=== PATIENT | female | born 1950 | race Caucasian/White ===

== ENCOUNTER 2021-03-12 10:00 | Inpatient (IN) ==
[2021-03-12] MEDS ORDERED: SODIUM CHLORIDE 0.9% 1000ML 1,000 ML IV STA (10:16)
[2021-03-12] MEDS ORDERED: ASPIRIN CHEW 324 MG PO STA (10:16)
[2021-03-12 10:46] LABS: Basophils # (auto) 0.02 K/uL (0-0.2); Basophils % (auto) 0.2 %; Eosinophils # (auto) 0.05 K/uL (0-0.5); Eosinophils % (auto) 0.6 %; Hematocrit (blood only) 41.2 % (37-47); Hemoglobin 14.1 g/dL (12.0-16.0); Immature Granulocytes # (auto) 0.01 K/uL (0.00-0.02); Immature Granulocytes % (auto) 0.1 %; Lymphocytes # (auto) 1.93 K/uL (1.2-3.4); Lymphocytes % (auto) 22.2 %; Mean Corpuscular Hemoglobin 32.2 pg (25-34); Mean Corpuscular Hgb Conc 34.2 g/dL (32-36); Mean Corpuscular Volume 94.1 fL (80-100); Mean Platelet Volume 9.9 fL (7.4-10.4); Monocytes # (auto) 0.57 K/uL (0.11-0.59); Monocytes % (auto) 6.6 %; Neutrophils # (auto) 6.12 K/uL (1.4-6.5); Neutrophils % (auto) 70.3 %; Platelet Count 342 K/uL (130-400); RDW Coefficient of Variation 13.1 % (11.5-14.5); RDW Standard Deviation 45.5 fL (36.4-46.3); Red Blood Count 4.38 M/uL (4.2-5.4)
[2021-03-12 11:06] LABS: Albumin Level 3.4 gm/dl (3.4-5.0); Bilirubin Direct 0.1 mg/dl (0-0.2); Calcium 8.5 mg/dl (8.5-10.1); Creatinine Clr Calc Pharmacy 76.2 ml/min; Est GFR (African American) 101.7 ml/min; Est GFR (Non-African American) 87.8 ml/min; Potassium 3.3 mmol/L (3.5-5.1)
[2021-03-12 11:21] LABS: Bilirubin,Total 0.5 mg/dl (0.2-1); Total Protein 7.6 gm/dl (6.4-8.2); Troponin I 0.295 ng/ml (0-0.045)
--- NOTE | 2021-03-12 11:21 | Emergency Department Note ---
History of Present Illness General Chief Complaint: Shortness of Breath/Dyspnea Stated Complaint: SHORTNESS OF BREATH,NAUSEA,HEARTBURN ALL DAY YESTE Time Seen by Provider: 03/12/21 10:14 History of Present Illness Provider Complaint: shortness of breath Onset (ago): hour(s) (2) Severity: moderate Consistency/Duration: + improved Relieved By: + rest Exacerbated By: + exertion and + movement Context: + occurred during exertion; no recent illness, no choking/aspiration, no medication noncompliance, no allergen exposure, no recent travel, no smoke/fume exposure and no elevated blood glucose Associated symptoms: no chest pain, no pain with inspiration, no fever, no cough, no wheezing, no sputum production, no orthopnea, no lower extremity pain, no polyuria, no palpitations, no hemoptysis, no diaphoresis, no nausea/vomiting, no syncope, no abdominal pain, no sense of impending doom, no dizziness and no lightheadedness Home Medications Medication Instructions Recorded Confirmed Type multivit with min-folic acid 1 tab PO QAM 03/12/21 03/12/21 History [Multivitamin Gummies] Allergies Allergy/AdvReac Type Severity Reaction Status Date / Time Vsipycp-Wpb-Egi Reductase AdvReac Severe Feels like Unverified 03/12/21 14:52 Inhibitor cuts inside of mouth Past Med/Surg History Medical History (Updated 03/12/21 @ 17:32 by Enrique Rosen) Asymptomatic microscopic hematuria Benign tumor of spinal cord History of DVT (deep vein thrombosis) Surgical History (Updated 03/12/21 @ 15:15 by Nell Cardenas PA-C) History of breast biopsy History of hernia repair History of hysterectomy History of tonsillectomy History of total right knee replacement (TKR) Family History Denies family history of Pulmonary embolism Social History (Updated 03/12/21 @ 15:16 by Nell Cardenas PA-C) Smoking Status: Never smoker Hx Alcohol Use: No Hx Substance Use: No Preferred Language: Macanese Communication Ability: Effective marital status: Current Living Situation: Spouse Feels Safe at Home: Yes Review of Systems A total of 10 systems reviewed and were otherwise negative Physical Exam Vital Signs: Vital Signs - 24 hr 03/12/21 10:04 03/12/21 10:37 03/12/21 10:38 Temperature 36.2 C L Temperature Source Temporal Artery Sc an Pulse Rate 101 H 94 H Pulse Rate from Sp O2 Sensor 95 H Respiratory Rate 20 26 H Respiratory Effort / Characteristics Respiratory Depth Respiratory Patter n Blood Pressure 141/95 H 155/98 H Blood Pressure Sho n 110 117 Pulse Oximetry 94 96 92 Oxygen Delivery Me thod Room Air Room Air Oxygen Flow Rate Sepsis Recent Feve r Within 48 Hours No Sepsis New/Unexpla ined Change in Men jony Status N/A Sepsis Action Take n by Nursing No Action Required 03/12/21 10:41 03/12/21 10:50 03/12/21 11:00 Temperature Temperature Source Pulse Rate 94 H 95 H 88 Pulse Rate from Sp O2 Sensor 94 H 95 H 88 Respiratory Rate 19 26 H 19 Respiratory Effort / Characteristics Non-Labored Sponta neous Respiratory Depth Normal Respiratory Patter n Regular Blood Pressure Blood Pressure Sho n Pulse Oximetry 92 86 L 97 Oxygen Delivery Me thod Room Air Oxygen Flow Rate Sepsis Recent Feve r Within 48 Hours Sepsis New/Unexpla ined Change in Men jony Status Sepsis Action Take n by Nursing 03/12/21 11:10 03/12/21 11:20 03/12/21 11:35 Temperature Temperature Source Pulse Rate 94 H 87 89 Pulse Rate from Sp O2 Sensor 95 H 88 Respiratory Rate 25 H 25 H 25 H Respiratory Effort / Characteristics Respiratory Depth Respiratory Patter n Blood Pressure Blood Pressure Sho n Pulse Oximetry 95 96 Oxygen Delivery Me thod Oxygen Flow Rate Sepsis Recent Feve r Within 48 Hours Sepsis New/Unexpla ined Change in Men jony Status Sepsis Action Take n by Nursing 03/12/21 11:40 03/12/21 11:50 03/12/21 12:00 Temperature Temperature Source Pulse Rate 92 H 91 H 93 H Pulse Rate from Sp O2 Sensor 91 H 94 H Respiratory Rate 24 21 19 Respiratory Effort / Characteristics Respiratory Depth Respiratory Patter n Blood Pressure Blood Pressure Sho n Pulse Oximetry 98 99 Oxygen Delivery Me thod Oxygen Flow Rate Sepsis Recent Feve r Within 48 Hours Sepsis New/Unexpla ined Change in Men jony Status Sepsis Action Take n by Nursing 03/12/21 12:10 03/12/21 12:20 03/12/21 12:30 Temperature Temperature Source Pulse Rate 93 H 91 H 87 Pulse Rate from Sp O2 Sensor 93 H 92 H 88 Respiratory Rate 21 23 20 Respiratory Effort / Characteristics Respiratory Depth Respiratory Patter n Blood Pressure Blood Pressure Sho n Pulse Oximetry 97 98 90 Oxygen Delivery Me thod Oxygen Flow Rate Sepsis Recent Feve r Within 48 Hours Sepsis New/Unexpla ined Change in Men jony Status Sepsis Action Take n by Nursing 03/12/21 12:40 03/12/21 13:16 03/12/21 13:20 Temperature Temperature Source Pulse Rate 88 92 H 87 Pulse Rate from Sp O2 Sensor 92 H 91 H 87 Respiratory Rate 23 21 22 Respiratory Effort / Characteristics Respiratory Depth Respiratory Patter n Blood Pressure Blood Pressure Sho n Pulse Oximetry 100 96 98 Oxygen Delivery Me thod Oxygen Flow Rate Sepsis Recent Feve r Within 48 Hours Sepsis New/Unexpla ined Change in Men jony Status Sepsis Action Take n by Nursing 03/12/21 13:30 03/12/21 13:40 03/12/21 13:50 Temperature Temperature Source Pulse Rate 88 88 88 Pulse Rate from Sp O2 Sensor 89 88 88 Respiratory Rate 22 20 20 Respiratory Effort / Characteristics Respiratory Depth Respiratory Patter n Blood Pressure Blood Pressure Sho n Pulse Oximetry 99 98 99 Oxygen Delivery Me thod Oxygen Flow Rate Sepsis Recent Feve r Within 48 Hours Sepsis New/Unexpla ined Change in Men jony Status Sepsis Action Take n by Nursing 03/12/21 14:00 03/12/21 14:10 03/12/21 14:20 Temperature Temperature Source Pulse Rate 90 90 93 H Pulse Rate from Sp O2 Sensor 90 91 H 94 H Respiratory Rate 22 20 20 Respiratory Effort / Characteristics Respiratory Depth Respiratory Patter n Blood Pressure Blood Pressure Sho n Pulse Oximetry 98 99 99 Oxygen Delivery Me thod Oxygen Flow Rate Sepsis Recent Feve r Within 48 Hours Sepsis New/Unexpla ined Change in Men jony Status Sepsis Action Take n by Nursing 03/12/21 14:30 03/12/21 14:40 03/12/21 14:50 Temperature Temperature Source Pulse Rate 91 H 91 H 91 H Pulse Rate from Sp O2 Sensor 91 H 92 H 91 H Respiratory Rate 21 21 20 Respiratory Effort / Characteristics Respiratory Depth Respiratory Patter n Blood Pressure Blood Pressure Sho n Pulse Oximetry 99 100 100 Oxygen Delivery Me thod Oxygen Flow Rate Sepsis Recent Feve r Within 48 Hours Sepsis New/Unexpla ined Change in Men jony Status Sepsis Action Take n by Nursing 03/12/21 15:00 03/12/21 15:10 06/08/21 15:20 Temperature Temperature Source Pulse Rate 91 H 93 H 93 H Pulse Rate from Sp O2 Sensor 90 93 H 93 H Respiratory Rate 22 20 19 Respiratory Effort / Characteristics Respiratory Depth Respiratory Patter n Blood Pressure Blood Pressure Sho n Pulse Oximetry 98 99 98 Oxygen Delivery Me thod Oxygen Flow Rate Sepsis Recent Feve r Within 48 Hours Sepsis New/Unexpla ined Change in Men jony Status Sepsis Action Take n by Nursing 03/12/21 15:30 03/12/21 15:40 03/12/21 17:06 Temperature Temperature Source Pulse Rate 92 H 89 Pulse Rate from Sp O2 Sensor 92 H 94 H Respiratory Rate 20 22 Respiratory Effort / Characteristics Respiratory Depth Respiratory Patter n Blood Pressure 165/109 H Blood Pressure Sho n Pulse Oximetry 99 99 Oxygen Delivery Me thod Nasal Cannula Oxygen Flow Rate 3 Sepsis Recent Feve r Within 48 Hours Sepsis New/Unexpla ined Change in Men jony Status Sepsis Action Take n by Nursing Physical Exam: Physical Exam GENERAL: He is oriented to person, place, and time. He appears well-developed and well-nourished. He does not appear distressed. HENT: Exam performed. - Head: Normocephalic and atraumatic. - Right Ear: External ear normal. No mastoid tenderness. - Left Ear: External ear normal. No mastoid tenderness. - Mouth/Throat: The oropharynx is clear and moist. No trismus in the jaw. No dental abscesses or uvula swelling. No oropharyngeal exudate or tonsillar abscesses. EYES: Conjunctivae and EOM are normal. Pupils are equal, round, and reactive to light. Right eye exhibits no discharge. Left eye exhibits no discharge. No scleral icterus. NECK: Normal range of motion. Neck supple. No JVD present. No spinous process tenderness present. No carotid bruit present. No rigidity. No tracheal deviation and normal range of motion present. No Brudzinski's sign and no Kernig's sign noted. CV: Tachycardic rate, regular rhythm, normal heart sounds and intact distal pulses. There is no peripheral edema. Palpable radial pulses bue. PULM/CHEST: Effort normal and breath sounds normal. No respiratory distress. No stridor. He has no wheezes. He has no rales. - Chest Wall: He exhibits no tenderness. ABD: The abdomen is soft. Bowel sounds are normal. He has no distension. No mass is present. There is no tenderness. There is no rebound, no guarding, no Villafuerte's sign and no tenderness at McBurney's point. Rovsig negative. MUSC/SKEL: Normal range of motion. There is no peripheral edema, tenderness or deformity. LYMPH: No cervical adenopathy. NEURO: He is alert and oriented to person, place, and time. He has normal strength. No cranial nerve deficit or sensory deficit. Coordination and gait nor mal. GCS eye subscore is 4. GCS verbal subscore is 5. GCS motor subscore is 6. Cerebellar tests wnl. SKIN: Skin is warm and dry. He is not diaphoretic. PSYCH: He has a normal mood and affect. Behavior is normal. Judgment and thought content normal. Course Course 1014: The patient was evaluated in room C7. A complete history and physical exam was performed Cardiac monitoring: An order was placed for continuous cardiac monitoring. The monitor shows a rate of 100 with sinus rhythm 1130: Patient became hypoxic on room air. Patient's oxygen saturations improved with 3 L nasal cannula. Troponin is elevated. Given this and the T wave inversions patient be started on heparin for NSTEMI. 1150: D-dimer elevated. Will obtain CT of the chest. 1415: Vital signs stable on supplemental oxygen via nasal cannula. CTA of the chest showed a extensive bilateral pulmonary emboli including a saddle embolus in the main pulmonary arteries and right-sided heart strain. This explains patient's elevated troponin. I did discuss the case with the ICU doctor Dr. Russo. Both he and I discussed with the patient about possible TPA administration. Patient is normotensive at this time and in no respiratory distress on nasal cannula. Given these findings, the patient and the at bedside stated they prefer not to get TPA as the patient is currently hemodynamically stable and not hypotensive. They stated that they did not want to risk spontaneous hemorrhage with TPA. Both Dr. Daniel and I agree with the patient's decision and feel it is appropriate especially since she is so normotensive and in no respiratory distress. We will continue anticoagulation with heparin and the patient's heparin drip was increased to more appropriate rate. [facility] stated to admit to Dr. Meng. Administered Medications Heparin Sodium/Dextrose (Heparin Sodium/Dextrose) 25,000 units in 500 mls @ 23 mls/hr IV .[id number] [facility]; Protocol Stop: 04/11/21 11:40 Last Titration: 03/12/21 14:29 Dose: 1,150 units/hr, 23 mls/hr Documented by: [id number] Cosigned by: [id number] Admin: 03/12/21 11:35 Dose: 750 units/hr, 15 mls/hr Documented by: [id number] Cosigned by: [id number] Discontinued Medications Aspirin (Aspirin Chew 324 Mg) 324 mg PO NOW STA Stop: 03/12/21 10:17 Last Admin: 03/12/21 11:14 Dose: 324 mg Documented by: [id number] Heparin Sodium (Porcine) (Heparin Sod (Porcine) 1000 Unit/Ml) 4,000 units IV NOW STA Stop: 03/12/21 11:29 Last Admin: 03/12/21 11:38 Dose: 4,000 units Documented by: [id number] Cosigned by: [id number] Heparin Sodium/Dextrose (Heparin Iv Adult Wt-Based Standard *No* Bolus Protocol) 1 ea IV NOW STA Stop: 03/12/21 14:22 Last Admin: 03/12/21 14:31 Dose: 1 ea Documented by: [id number] Sodium Chloride (Nss 1000ml) 1,000 mls @ 999 mls/hr IV .[id number] STA Stop: 03/12/21 11:16 Last Infusion: 03/12/21 12:39 Dose: 0 mls/hr Documented by: [id number] Admin: 03/12/21 11:14 Dose: 999 mls/hr Documented by: [id number] Ioversol (Optiray 350 500ml) 117 ml IV ONCE ONE Stop: 03/12/21 13:06 Last Admin: 03/12/21 13:05 Dose: 117 ml Documented by: [id number] Potassium Chloride (Potassium Chloride Crtab 20 Meq Tabcr) 60 meq PO NOW STA Stop: 03/12/21 14:58 Last Admin: 03/12/21 16:40 Dose: 60 meq Documented by: [id number] Medical Decision Making Laboratory Data Result diagrams: 03/12/21 10:37 03/12/21 10:37 Lab Results 03/12/21 03/12/21 03/12/21 Range/Units 10:37 10:37 11:09 WBC 8.70 (4.8-10.8) K/uL RBC 4.38 (4.2-5.4) M/uL Hgb 14.1 (12.0-16.0) g/dL Hct 41.2 (37-47) % MCV 94.1 (80-100) fL MCH 32.2 (25-34) pg MCHC 34.2 (32-36) g/dL RDW Std Deviation 45.5 (36.4-46.3) fL RDW Coeff of Avery 13.1 (11.5-14.5) % Plt Count 342 (130-400) K/uL MPV 9.9 (7.4-10.4) fL Immature Gran % (Auto) 0.1 % Neut % (Auto) 70.3 % Lymph % (Auto) 22.2 % [place] % (Auto) 6.6 % Eos % (Auto) 0.6 % Baso % (Auto) 0.2 % Neut # (Auto) 6.12 (1.4-6.5) K/uL Lymph # (Auto) 1.93 (1.2-3.4) K/uL [place] # (Auto) 0.57 (0.11-0.59) K/uL Eos # (Auto) 0.05 (0-0.5) K/uL Baso # (Auto) 0.02 (0-0.2) K/uL Immature Gran # (Auto) 0.01 (0.00-0.02) K/uL PT 10.5 (9.0-12.0) Seconds INR 1.0 (0.9-1.1) APTT 22.5 (21.0-31.0) Seconds PTT Ratio 0.9 D-Dimer 5300 H* (0-500) ug/L FEU Sodium 139 (136-145) mmol/L Potassium 3.3 L (3.5-5.1) mmol/L Chloride 105 (98-107) mmol/L Carbon Dioxide 27 (21-32) mmol/L Anion Gap 7.0 (3-11) BUN 12 (7-18) mg/dl Creatinine 0.70 (0.6-1.2) mg/dl Est Cr Clr Drug Dosing 76.2 ml/min Est GFR ( Amer) 101.7 ml/min Est GFR (Non-Af Amer) 87.8 ml/min BUN/Creatinine Ratio 17.0 (10-20) Glucose 142 H (70-99) mg/dl Calcium 8.5 (8.5-10.1) mg/dl Total Bilirubin 0.5 (0.2-1) mg/dl Direct Bilirubin 0.1 (0-0.2) mg/dl AST 15 (15-37) U/L ALT 18 (12-78) U/L Alkaline Phosphatase 72 (45-117) U/L Troponin I 0.295 H* (0-0.045) ng/ml Total Protein 7.6 (6.4-8.2) gm/dl Albumin 3.4 (3.4-5.0) gm/dl Lipase 90 (73-393) U/L COVID-19 Eval Order SARS-CoV-2 (PCR) (Negative) Influ A Molecular Assay (Negative) Influ B Molecular Assay (Negative) SARS-CoV-2, RNA, NAAT 03/12/21 03/12/21 03/12/21 Range/Units 11:24 11:24 11:24 WBC (4.8-10.8) K/uL RBC (4.2-5.4) M/uL Hgb (12.0-16.0) g/dL Hct (37-47) % MCV (80-100) fL MCH (25-34) pg MCHC (32-36) g/dL RDW Std Deviation (36.4-46.3) fL RDW Coeff of Avery (11.5-14.5) % Plt Count (130-400) K/uL MPV (7.4-10.4) fL Immature Gran % (Auto) % Neut % (Auto) % Lymph % (Auto) % [place] % (Auto) % Eos % (Auto) % Baso % (Auto) % Neut # (Auto) (1.4-6.5) K/uL Lymph # (Auto) (1.2-3.4) K/uL [place] # (Auto) (0.11-0.59) K/uL Eos # (Auto) (0-0.5) K/uL Baso # (Auto) (0-0.2) K/uL Immature Gran # (Auto) (0.00-0.02) K/uL PT (9.0-12.0) Seconds INR (0.9-1.1) APTT (21.0-31.0) Seconds PTT Ratio D-Dimer (0-500) ug/L FEU Sodium (136-145) mmol/L Potassium (3.5-5.1) mmol/L Chloride (98-107) mmol/L Carbon Dioxide (21-32) mmol/L Anion Gap (3-11) BUN (7-18) mg/dl Creatinine (0.6-1.2) mg/dl Est Cr Clr Drug Dosing ml/min Est GFR ( Amer) ml/min Est GFR (Non-Af Amer) ml/min BUN/Creatinine Ratio (10-20) Glucose (70-99) mg/dl Calcium (8.5-10.1) mg/dl Total Bilirubin (0.2-1) mg/dl Direct Bilirubin (0-0.2) mg/dl AST (15-37) U/L ALT (12-78) U/L Alkaline Phosphatase (45-117) U/L Troponin I (0-0.045) ng/ml Total Protein (6.4-8.2) gm/dl Albumin (3.4-5.0) gm/dl Lipase (73-393) U/L COVID-19 Eval [facility] SARS-CoV-2 (PCR) (Negative) Influ A Molecular Assay Negative (Negative) Influ B Molecular Assay Negative (Negative) SARS-CoV-2, RNA, NAAT Cancelled 03/12/21 03/12/21 Range/Units 11:24 15:42 WBC (4.8-10.8) K/uL RBC (4.2-5.4) M/uL Hgb (12.0-16.0) g/dL Hct (37-47) % MCV (80-100) fL MCH (25-34) pg MCHC (32-36) g/dL RDW Std Deviation (36.4-46.3) fL RDW Coeff of Avery (11.5-14.5) % Plt Count (130-400) K/uL MPV (7.4-10.4) fL Immature Gran % (Auto) % Neut % (Auto) % Lymph % (Auto) % [place] % (Auto) % Eos % (Auto) % Baso % (Auto) % Neut # (Auto) (1.4-6.5) K/uL Lymph # (Auto) (1.2-3.4) K/uL [place] # (Auto) (0.11-0.59) K/uL Eos # (Auto) (0-0.5) K/uL Baso # (Auto) (0-0.2) K/uL Immature Gran # (Auto) (0.00-0.02) K/uL PT (9.0-12.0) Seconds INR (0.9-1.1) APTT (21.0-31.0) Seconds PTT Ratio D-Dimer (0-500) ug/L FEU Sodium (136-145) mmol/L Potassium (3.5-5.1) mmol/L Chloride (98-107) mmol/L Carbon Dioxide (21-32) mmol/L Anion Gap (3-11) BUN (7-18) mg/dl Creatinine (0.6-1.2) mg/dl Est Cr Clr Drug Dosing ml/min Est GFR ( Amer) ml/min Est GFR (Non-Af Amer) ml/min BUN/Creatinine Ratio (10-20) Glucose (70-99) mg/dl Calcium (8.5-10.1) mg/dl Total Bilirubin (0.2-1) mg/dl Direct Bilirubin (0-0.2) mg/dl AST (15-37) U/L ALT (12-78) U/L Alkaline Phosphatase (45-117) U/L Troponin I 0.251 H* (0-0.045) ng/ml Total Protein (6.4-8.2) gm/dl Albumin (3.4-5.0) gm/dl Lipase (73-393) U/L COVID-19 Eval Order SARS-CoV-2 (PCR) NEGATIVE (Negative) Influ A Molecular Assay (Negative) Influ B Molecular Assay (Negative) SARS-CoV-2, RNA, NAAT Imaging Data Radiologist's Impression: Chest X-Ray 03/12/21 10:16 XR chest 2V PA/lateral CLINICAL HISTORY: Atypical chest pain COMPARISON STUDY: No previous studies for comparison. FINDINGS: The heart is the upper limits of normal in size. There is aortic tortuosity/ectasia. There is no failure. There is no focal pulmonary consolidation. There are no pleural effusions. Linear opacities visualized towards the right lung base likely are present right middle lobe subsegmental atelectasis/scarring. IMPRESSION: No active disease in the chest. ACT 112: Negative or not required by law. Electronically signed by: Juwan Rodas M.D. 03/12/2021 11:39 AM Chest CTA 03/12/21 11:51 CHEST CTA for PULMONARY ARTERIES CT DOSE: 310.95 mGy.cm HISTORY: Atypical chest pain. TECHNIQUE: Multiaxial CT images of the chest were performed following the intravenous administration of contrast to evaluate the pulmonary arteries. Maximal intensity projection images were also obtained. A dose lowering technique was utilized adhering to the principles of ALARA. COMPARISON STUDY: None. FINDINGS: Partially visualized 1.2 cm hypodensity within the left hepatic lobe anteriorly. This may represent an area of focal fat. The visualized spleen is unremarkable. There is a trace left pleural effusion. Normal caliber thoracic aorta with no evidence for dissection. There is mild flattening of the interventricular septum suggestive of mild right-sided heart strain. Extensive bilateral pulmonary emboli including a small saddle embolus at the bifurcation of the main pulmonary arteries. Multiple additional scattered pulmonary seen within the lobar and segmental branches of the majority of the bilateral pulmonary arteries. Normal esophagus. No mediastinal hilar lymphadenopathy. Levoscoliosis of the thoracic spine. No suspicious lytic or blastic osseous lesions. No pneumothorax. The central airways are patent. Small groundglass density the basal left lower lobe. This may represent atelectasis or a developing pulmonary infarct. A few additional linear densities within the right lung base favor subsegmental atelectasis or scarring. A 5 mm nodule within the left lower lobe on image 43. IMPRESSION: 1. Extensive bilateral pulmonary emboli including a saddle embolus at the main pulmonary arteries and mild right-sided heart strain. 2. Probable developing small pulmonary infarct within the left lower lobe. 3. Trace left pleural effusion. 4. A 5 mm indeterminate pulmonary nodule within the left lower lobe. Please refer to below summary of Fleischner criteria recommendations for follow- up of incidental CT nodules (Elan Panda, Guidelines for management of small pulmonary nodules detected on CT scans: A statement from the Fleischner Society, Radiology 237: [phone].) SOLID NODULES Solitary nodule size: <6 mm * Low risk patients: no follow-up needed * high risk patients: optional CT at 12 months Solitary nodule size: 6-8 mm * Low risk patients: follow-up at 6-12 months, then consider further follow-up at 18-24 months * high risk patients: initial follow-up CT at 6-12 months and then at 18-24 months if no change Solitary nodule size: >8 mm * either low or high risk patients - consider follow-up CT at 3 months, and/or CT-PET, and/or biopsy Multiple nodules size: <6 mm * Low risk patients: no routine follow-up * high risk patients: optional CT at 12 months Multiple nodules size: 6-8 mm * Low risk patients: follow-up at 3-6 months, then consider further follow-up at 18-24 months * high risk patients: follow-up at 3-6 months, then at 18-24 months if no change Multiple nodules size: >8 mm * Low risk patients: follow-up at 3-6 months, then consider further follow-up at 18-24 months * high risk patients: follow-up at 3-6 months, then at 18-24 months if no change Note: newly detected indeterminate nodule in persons 35 years of age or older. * Low risk patients: minimal or absent history of smoking and/or other known risk factors * high risk patients: history of smoking or of other known risk factors (e.g. first degree relative with lung cancer, or exposure to asbestos, radon, uranium) * if a nodule up to 8 mm is partly solid or is ground glass further follow-up is required after 24 months to exclude possible slow growing adenocarcinoma ([place]) SUBSOLID NODULES Solitary pure ground-glass nodule * nodule size <6 mm - no CT follow-up required * nodule size >=6 mm - follow-up CT at 6-12 months, then every 2 years until 5 years Solitary part-solid nodule * nodule size <6 mm - no CT follow-up required * nodule size >=6 mm - follow-up CT at 3-6 months. If unchanged, and solid component remains <6 mm, then annual follow-up for 5 years Multiple subsolid nodules * nodule size <6 mm - follow-up CT at 3-6 months, consider further follow-up at 2 and 4 years if stable * nodule size >=6 mm - follow-up CT at 3-6 months, subsequent management based on the most suspicious nodule(s) ACT 112: Negative or not required by law. Electronically signed by: Asael Vu M.D. 03/12/2021 1:25 PM Venous Doppler Study 03/12/21 14:53 BILATERAL LOWER EXTREMITY VENOUS DOPPLER CLINICAL HISTORY: RLE swelling, PE COMPARISON STUDY: No previous studies for comparison. TECHNIQUE: Sonography of the deep venous system of the bilateral lower extremities was performed. Compression and augmentation were evaluated. FINDINGS: There is no deep venous thrombus within the right lower extremity. Note is made of deep venous thrombus within the left superficial femoral vein. IMPRESSION: Deep venous thrombus within the left superficial femoral vein. ACT 112: Negative or not required by law. Electronically signed by: Sahil Ortiz M.D. 03/12/2021 4:33 PM ECG Data Interpretation: Sinus rhythm with rate of 101. IA QRS intervals within normal limits. QTC 503. No ST elevation or ST depression. T wave inversion in leads II, III, aVF, V3 through V6. MDM Narrative 1014: The patient was evaluated in room C7. A complete history and physical exam was performed Cardiac monitoring: An order was placed for continuous cardiac monitoring. The monitor shows a rate of 100 with sinus rhythm 1130: Patient became hypoxic on room air. Patient's oxygen saturations improved with 3 L nasal cannula. Troponin is elevated. Given this and the T wave invers ions patient be started on heparin for NSTEMI. 1150: D-dimer elevated. Will obtain CT of the chest. 1415: Vital signs stable on supplemental oxygen via nasal cannula. CTA of the chest showed a extensive bilateral pulmonary emboli including a saddle embolus in the main pulmonary arteries and right-sided heart strain. This explains patient's elevated troponin. I did discuss the case with the ICU doctor Dr. Russo. Both he and I discussed with the patient about possible TPA administration. Patient is normotensive at this time and in no respiratory distress on nasal cannula. Given these findings, the patient and the at bedside stated they prefer not to get TPA as the patient is currently hemodynamically stable and not hypotensive. They stated that they did not want to risk spontaneous hemorrhage with TPA. Both Dr. Daniel and I agree with the patient's decision and feel it is appropriate especially since she is so normotensive and in no respiratory distress. [facility] stated to admit to Dr. Meng. Impression & Plan Saddle pulmonary embolus, Hypoxia, Elevated troponin Critical Care Time Critical Care Time: Yes Total Critical Care Time: 120 I have personally spent greater than 120 minutes of critical care time in the direct management of this patient. This includes bedside care, interpretation of diagnostic studies, and testing, discussion with consultants, patient, and family members, and other required patient management activities. This 120 minutes is in excess of all separately billable procedures. Discharge Plan Visit Data Chief Complaint: Shortness of Breath/Dyspnea Stated Complaint: SHORTNESS OF BREATH,NAUSEA,HEARTBURN ALL DAY YESTE ED Provider: Enrique Rosen Discharge Problem: Saddle pulmonary embolus, Hypoxia, Elevated troponin Patient Disposition: Admitted As Inpatient Discharge Instructions Interventions: ED Discharge Assessment Last Done: 03/12/21 17:06 Forms Stand Alone Forms: [facility], [facility] Emergency Department, Important Visit Information Prescriptions Prescriptions: No Action Multivitamin Gummies 200 mcg Tablet,Chewable 1 tab PO QAM RF: 0 Referrals Referrals: Canelo Leslie MD [Primary Care Provider] - Discharge Problem: Saddle pulmonary embolus Qualifiers: Chronicity: acute Acute cor pulmonale presence: with acute cor pulmonale Qualified Code(s): I26.02 - Saddle embolus of pulmonary artery with acute cor pulmonale
[2021-03-12] MEDS ORDERED: Heparin IV Adult Wt-Based Low-Dose WITH Bolus Protocol STA (11:26)
[2021-03-12] MEDS ORDERED: HEPARIN SOD (PORCINE) 1000 UNIT/ML IV STA (11:28)
[2021-03-12] MEDS: HEPARIN SODIUM/DEXTROSE 25,000 UNITS/500 ML BAG IV SCH (11:35)
[2021-03-12 11:37] LABS: Partial Thromboplastin Ratio 0.9; Partial Thromboplastin Time 22.5 Seconds (21.0-31.0); Prothrombin Time 10.5 Seconds (9.0-12.0)
--- NOTE | 2021-03-12 11:40 | XRay Report ---
XR chest 2V PA/lateral CLINICAL HISTORY: Atypical chest pain COMPARISON STUDY: No previous studies for comparison. FINDINGS: The heart is the upper limits of normal in size. There is aortic tortuosity/ectasia. There is no failure. There is no focal pulmonary consolidation. There are no pleural effusions. Linear opac ities visualized towards the right lung base likely are present right middle lobe subsegmental atelec tasis/scarring. IMPRESSION: No active disease in the chest. ACT 112: Negative or not required by law. Electronically signed by: Juwan Rodas M.D. 03/12/2021 11:39 AM
[2021-03-12] MEDS ORDERED: HEPARIN SOD (PORCINE) 1000 UNIT/ML IV ONE (11:41)
[2021-03-12 11:50] LABS: D Dimer 5300 ug/L FEU (0-500)
[2021-03-12 12:06] LABS: Influenza A virus by PCR Negative (Negative); Influenza B virus by PCR Negative (Negative)
[2021-03-12] MEDS ORDERED: OPTIRAY 350 500ml IV ONE (13:05)
--- NOTE | 2021-03-12 13:26 | CT Scan Report ---
CHEST CTA for PULMONARY ARTERIES CT DOSE: 310.95 mGy.cm HISTORY: Atypical chest pain. TECHNIQUE: Multiaxial CT images of the chest were performed following the intravenous administration of contrast to evaluate the pulmonary arteries. Maximal intensity projection images were also obtaine d. A dose lowering technique was utilized adhering to the principles of ALARA. COMPARISON STUDY: None. FINDINGS: Partially visualized 1.2 cm hypodensity within the left hepatic lobe anteriorly. This may r epresent an area of focal fat. The visualized spleen is unremarkable. There is a trace left pleural e ffusion. Normal caliber thoracic aorta with no evidence for dissection. There is mild flattening of t he interventricular septum suggestive of mild right-sided heart strain. Extensive bilateral pulmonary emboli including a small saddle embolus at the bifurcation of the main pulmonary arteries. Multiple additional scattered pulmonary seen within the lobar and segmental branches of the majority of the bi lateral pulmonary arteries. Normal esophagus. No mediastinal hilar lymphadenopathy. Levoscoliosis of the thoracic spine. No suspicious lytic or blastic osseous lesions. No pneumothorax. The central airw ays are patent. Small groundglass density the basal left lower lobe. This may represent atelectasis o r a developing pulmonary infarct. A few additional linear densities within the right lung base favor subsegmental atelectasis or scarring. A 5 mm nodule within the left lower lobe on image 43. IMPRESSION: 1. Extensive bilateral pulmonary emboli including a saddle embolus at the main pulmonary arteries and mild right-sided heart strain. 2. Probable developing small pulmonary infarct within the left lower lobe. 3. Trace left pleural effusion. 4. A 5 mm indeterminate pulmonary nodule within the left lower lobe. Please refer to below summary of Fleischner criteria recommendations for follow-up of incidental CT n odules (Elan Panda, Guidelines for management of small pulmonary nodules detected on CT scans: A sta tement from the Fleischner Society, Radiology 237: [phone].) SOLID NODULES Solitary nodule size: <6 mm * Low risk patients: no follow-up needed * high risk patients: optional CT at 12 months Solitary nodule size: 6-8 mm * Low risk patients: follow-up at 6-12 months, then consider further follow-up at 18-24 months * high risk patients: initial follow-up CT at 6-12 months and then at 18-24 months if no change Solitary nodule size: >8 mm * either low or high risk patients - consider follow-up CT at 3 months, and/or CT-PET, and/or biopsy Multiple nodules size: <6 mm * Low risk patients: no routine follow-up * high risk patients: optional CT at 12 months Multiple nodules size: 6-8 mm * Low risk patients: follow-up at 3-6 months, then consider further follow-up at 18-24 months * high risk patients: follow-up at 3-6 months, then at 18-24 months if no change Multiple nodules size: >8 mm * Low risk patients: follow-up at 3-6 months, then consider further follow-up at 18-24 months * high risk patients: follow-up at 3-6 months, then at 18-24 months if no change Note: newly detected indeterminate nodule in persons 35 years of age or older. * Low risk patients: minimal or absent history of smoking and/or other known risk factors * high risk patients: history of smoking or of other known risk factors (e.g. first degree relative with lung cancer, or exposure to asbestos, radon, uranium) * if a nodule up to 8 mm is partly solid or is ground glass further follow-up is required after 24 m onths to exclude possible slow growing adenocarcinoma (KEENAN) SUBSOLID NODULES Solitary pure ground-glass nodule * nodule size <6 mm - no CT follow-up required * nodule size >=6 mm - follow-up CT at 6-12 months, then every 2 years until 5 years Solitary part-solid nodule * nodule size <6 mm - no CT follow-up required * nodule size >=6 mm - follow-up CT at 3-6 months. If unchanged, and solid component remains <6 mm, then annual follow-up for 5 years Multiple subsolid nodules * nodule size <6 mm - follow-up CT at 3-6 months, consider further follow-up at 2 and 4 years if sta ble * nodule size >=6 mm - follow-up CT at 3-6 months, subsequent management based on the most suspiciou s nodule(s) ACT 112: Negative or not required by law. Electronically signed by: Asael Vu M.D. 03/12/2021 1:25 PM
[2021-03-12] MEDS ORDERED: Heparin IV Adult Wt-Based Standard *NO* Bolus Protocol IV STA (14:21)
--- NOTE | 2021-03-12 14:37 | Critical Care Consultation ---
Date of Consultation March 12, 2021 Assessment & Plan (1) Pulmonary embolism: Patient is hemodynamically stable with a blood pressure of 158 systolic and saturating 97% on 2 L nasal cannula. We discussed risks and benefits of anticoagulation versus systemic lytics (she does not meet criteria) as well as referral to a tertiary care center for possible catheter directed thrombolysis. She does not desire transfer for further evaluation for catheter directed thrombolysis and she will be admitted to the hospitalist service. Present on Admission?: Yes History of Present Illness Reason for Consultation: Anticoagulation versus lytics and submassive pulmonary emboli Requesting Physician: Oliver Rosen Attending Physician: Oliver Rosen History of Present Illness Patient is a 70-year-old female with a remote history of DVT who presents with increasing exertional dyspnea and mild chest discomfort. She was discovered to have elevated troponins and an elevated D-dimer which prompted CT scan which demonstrated significant clot burden. Her PESI score is 90 class III based off of her dropping her oxygen saturation while she was in the emergency department. Otherwise her Passey score was 70 based on age alone Patient History Medical History No pertinent family history No pertinent past medical history Surgical History No pertinent past surgical history Social History Smoking Status: Former smoker Preferred Language: Tunisian Feels Safe at Home: Yes Review of Systems Review of Systems: All systems reviewed & are unremarkable except as noted in HPI & below Physical Exam Physical Exam: General: Alert. nontoxic. Skin: Warm, dry, Head: Atraumatic Ears, nose, mouth and throat: airway patent Cardiovascular: Normal peripheral perfusion Respiratory: no respiratory distress Gastrointestinal: Non distended Musculoskeletal: No deformity Results & Data Results & Data ([facility]) Vital Signs (Past 12 Hours) Vital Signs Temp Pulse Resp BP Pulse Ox 03/12/21 13:20 87 22 98 03/12/21 13:16 92 H 21 96 03/12/21 12:40 88 23 100 03/12/21 12:30 87 20 90 03/12/21 12:20 91 H 23 98 03/12/21 12:10 93 H 21 97 03/12/21 12:00 93 H 19 99 03/12/21 11:50 91 H 21 98 03/12/21 11:40 92 H 24 03/12/21 11:35 89 25 H 03/12/21 11:20 87 25 H 96 03/12/21 11:10 94 H 25 H 95 03/12/21 11:00 88 19 97 03/12/21 10:50 95 H 26 H 86 L 03/12/21 10:41 94 H 19 92 03/12/21 10:38 92 03/12/21 10:37 94 H 26 H 155/98 H 96 03/12/21 10:04 36.2 C L 101 H 20 141/95 H 94 Laboratory Results 03/12/21 03/12/21 03/12/21 Range/Units 11:24 11:24 11:24 WBC (4.8-10.8) K/uL RBC (4.2-5.4) M/uL Hgb (12.0-16.0) g/dL Hct (37-47) % MCV (80-100) fL MCH (25-34) pg MCHC (32-36) g/dL RDW Std Deviation (36.4-46.3) fL RDW Coeff of Avery (11.5-14.5) % Plt Count (130-400) K/uL MPV (7.4-10.4) fL Immature Gran % (Auto) % Neut % (Auto) % Lymph % (Auto) % [place] % (Auto) % Eos % (Auto) % Baso % (Auto) % Neut # (Auto) (1.4-6.5) K/uL Lymph # (Auto) (1.2-3.4) K/uL [place] # (Auto) (0.11-0.59) K/uL Eos # (Auto) (0-0.5) K/uL Baso # (Auto) (0-0.2) K/uL Immature Gran # (Auto) (0.00-0.02) K/uL PT (9.0-12.0) Seconds INR (0.9-1.1) APTT (21.0-31.0) Seconds PTT Ratio D-Dimer (0-500) ug/L FEU Sodium (136-145) mmol/L Potassium (3.5-5.1) mmol/L Chloride (98-107) mmol/L Carbon Dioxide (21-32) mmol/L Anion Gap (3-11) BUN (7-18) mg/dl Creatinine (0.6-1.2) mg/dl Est Cr Clr Drug Dosing ml/min Est GFR ( Amer) ml/min Est GFR (Non-Af Amer) ml/min BUN/Creatinine Ratio (10-20) Glucose (70-99) mg/dl Calcium (8.5-10.1) mg/dl Total Bilirubin (0.2-1) mg/dl Direct Bilirubin (0-0.2) mg/dl AST (15-37) U/L ALT (12-78) U/L Alkaline Phosphatase (45-117) U/L Troponin I (0-0.045) ng/ml Total Protein (6.4-8.2) gm/dl Albumin (3.4-5.0) gm/dl Lipase (73-393) U/L COVID-19 Eval Order [facility] SARS-CoV-2 (PCR) NEGATIVE (Negative) Influ A Molecular Assay (Negative) Influ B Molecular Assay (Negative) SARS-CoV-2, RNA, NAAT Cancelled 03/12/21 03/12/21 03/12/21 Range/Units 11:24 11:09 10:37 WBC (4.8-10.8) K/uL RBC (4.2-5.4) M/uL Hgb (12.0-16.0) g/dL Hct (37-47) % MCV (80-100) fL MCH (25-34) pg MCHC (32-36) g/dL RDW Std Deviation (36.4-46.3) fL RDW Coeff of Avery (11.5-14.5) % Plt Count (130-400) K/uL MPV (7.4-10.4) fL Immature Gran % (Auto) % Neut % (Auto) % Lymph % (Auto) % [place] % (Auto) % Eos % (Auto) % Baso % (Auto) % Neut # (Auto) (1.4-6.5) K/uL Lymph # (Auto) (1.2-3.4) K/uL [place] # (Auto) (0.11-0.59) K/uL Eos # (Auto) (0-0.5) K/uL Baso # (Auto) (0-0.2) K/uL Immature Gran # (Auto) (0.00-0.02) K/uL PT 10.5 (9.0-12.0) Seconds INR 1.0 (0.9-1.1) APTT 22.5 (21.0-31.0) Seconds PTT Ratio 0.9 D-Dimer 5300 H* (0-500) ug/L FEU Sodium 139 (136-145) mmol/L Potassium 3.3 L (3.5-5.1) mmol/L Chloride 105 (98-107) mmol/L Carbon Dioxide 27 (21-32) mmol/L Anion Gap 7.0 (3-11) BUN 12 (7-18) mg/dl Creatinine 0.70 (0.6-1.2) mg/dl Est Cr Clr Drug Dosing 76.2 ml/min Est GFR ( Amer) 101.7 ml/min Est GFR (Non-Af Amer) 87.8 ml/min BUN/Creatinine Ratio 17.0 (10-20) Glucose 142 H (70-99) mg/dl Calcium 8.5 (8.5-10.1) mg/dl Total Bilirubin 0.5 (0.2-1) mg/dl Direct Bilirubin 0.1 (0-0.2) mg/dl AST 15 (15-37) U/L ALT 18 (12-78) U/L Alkaline Phosphatase 72 (45-117) U/L Troponin I 0.295 H* (0-0.045) ng/ml Total Protein 7.6 (6.4-8.2) gm/dl Albumin 3.4 (3.4-5.0) gm/dl Lipase 90 (73-393) U/L COVID-19 Eval Order SARS-CoV-2 (PCR) (Negative) Influ A Molecular Assay Negative (Negative) Influ B Molecular Assay Negative (Negative) SARS-CoV-2, RNA, NAAT 03/12/21 Range/Units 10:37 WBC 8.70 (4.8-10.8) K/uL RBC 4.38 (4.2-5.4) M/uL Hgb 14.1 (12.0-16.0) g/dL Hct 41.2 (37-47) % MCV 94.1 (80-100) fL MCH 32.2 (25-34) pg MCHC 34.2 (32-36) g/dL RDW Std Deviation 45.5 (36.4-46.3) fL RDW Coeff of Avery 13.1 (11.5-14.5) % Plt Count 342 (130-400) K/uL MPV 9.9 (7.4-10.4) fL Immature Gran % (Auto) 0.1 % Neut % (Auto) 70.3 % Lymph % (Auto) 22.2 % [place] % (Auto) 6.6 % Eos % (Auto) 0.6 % Baso % (Auto) 0.2 % Neut # (Auto) 6.12 (1.4-6.5) K/uL Lymph # (Auto) 1.93 (1.2-3.4) K/uL [place] # (Auto) 0.57 (0.11-0.59) K/uL Eos # (Auto) 0.05 (0-0.5) K/uL Baso # (Auto) 0.02 (0-0.2) K/uL Immature Gran # (Auto) 0.01 (0.00-0.02) K/uL PT (9.0-12.0) Seconds INR (0.9-1.1) APTT (21.0-31.0) Seconds PTT Ratio D-Dimer (0-500) ug/L FEU Sodium (136-145) mmol/L Potassium (3.5-5.1) mmol/L Chloride (98-107) mmol/L Carbon Dioxide (21-32) mmol/L Anion Gap (3-11) BUN (7-18) mg/dl Creatinine (0.6-1.2) mg/dl Est Cr Clr Drug Dosing ml/min Est GFR ( Amer) ml/min Est GFR (Non-Af Amer) ml/min BUN/Creatinine Ratio (10-20) Glucose (70-99) mg/dl Calcium (8.5-10.1) mg/dl Total Bilirubin (0.2-1) mg/dl Direct Bilirubin (0-0.2) mg/dl AST (15-37) U/L ALT (12-78) U/L Alkaline Phosphatase (45-117) U/L Troponin I (0-0.045) ng/ml Total Protein (6.4-8.2) gm/dl Albumin (3.4-5.0) gm/dl Lipase (73-393) U/L COVID-19 Eval Order SARS-CoV-2 (PCR) (Negative) Influ A Molecular Assay (Negative) Influ B Molecular Assay (Negative) SARS-CoV-2, RNA, NAAT Coding Level of Care Code 95233 Inpt Consult Level 5 Diagnoses Pulmonary embolism I26.92 Pulmonary embolism type: saddle Chronicity: acute Acute cor pulmonale presence: without acute cor pulmonale (1) Pulmonary embolism Pulmonary embolism type: saddle Chronicity: acute Acute cor pulmonale presence: without acute cor pulmonale Qualified Code(s): I26.92 - Saddle embolus of pulmonary artery without acute cor pulmonale
[2021-03-12] MEDS ORDERED: POTASSIUM CHLORIDE CRTAB 20 MEQ TABCR PO STA (14:57)
--- NOTE | 2021-03-12 15:18 | History & Physical Report ---
Date of Service March 12, 2021 Assessment & Plan (1) Saddle pulmonary embolus: (2) Hypoxia: (3) Left leg DVT: (4) Elevated troponin: This is a 70-year-old female who has prior PMH of DVT x2 in the past, one provoked by hormone replacement therapy who presents to ED secondary to shortness of breath x 4 days. Chest CTA revealed extensive bilateral PE including a saddle embolus at the main pulmonary artery and mild right heart strain. Right heart strain was also evident secondary to elevated troponin and significant T wave inversions diffusely on EKG. Hemodynamically patient is stable and her BP is 155/98. She is currently saturating 100% on 2 L of O2 and is comfortable. Venous doppler reveals left lower extremity superficial femoral DVT. Echocardiogram EF 55%, right ventricular systolic function is severely reduced, right ventricle is moderate to severely dilated. 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 admit to PCU continue IV Heparin monitor on tele pt declined TPA after discussion with ED provider and resource analyst echo already obtained cycle trops consult cardiology - pt requesting [facility] due to following with Shane (5) Hypokalemia: Give 60 M EQ KCl x1 now Follow BMP (6) Pulmonary nodule: 5 mm indeterminate pulmonary nodule within the left lower lobe. f/u CT in 12 months Pt will need hypercoag work up as outpt as well as up date cancer screenings She had mammo 01/28 - WNL, history of hysterecomy Unknown if ever had C-scope Dispo: PCU PCP: Mariama Full Code Pt was seen and examined in collaboration with Dr. Meng, please see addendum History of Present Illness Chief Complaint: SOB x 4 days. Primary Care Provider: Canelo Leslie MD This is a 70-year-old female who has prior PMH of DVT x2 in the past, one provoked by hormone replacement therapy who presents to ED secondary to shortness of breath x 4 days. Patient was in her normal state of health until Thursday when she noticed minor exertion caused her to be short of breath. This morning she became extremely short of breath just brushing teeth, and therefore she presented to ED. She denies similar symptoms in the past. She did not have any lightheadedness, dizziness, nausea, chest pain or diaphoresis associated with shortness of breath. She does elicit last evening having significant substernal indigestion. This felt similar to her prior indigestion and was relieved with Pepto-Bismol. She denies any recent surgery, prolonged immobilization or travel. Her first DVT was when she was on hormone replacement therapy. Her second DVT was unprovoked. She was treated with warfarin both times. She denies any hypercoagulable work-up or family history of DVT. She denies any recent fever, chills, sweats, palpitations, nausea, vomiting, abdominal pain, dysuria, increased urgency or frequency with urination, melena or hematochezia. Approximately 1 month ago patient was treated with antibiotics secondary to dysuria and hematuria. Her urine culture was negative at the time. She did have repeat UA which showed small about of microscopic blood. In ED patient remained hemodynamically stable although she was requiring 2 L of supplemental oxygen. Her CBC and CMP was generally unremarkable except for potassium 3.3 and glucose 142. Her troponin was elevated at 0.295. Chest CTA revealed extensive bilateral PE including saddle embolus at main pulmonary arteries and mild right heart strain, probable developing small pulmonary infarcts in the left lower lobe. Consultation was made with critical care services for discussion of thrombolysis and patient declined. She was therefore started on appropriate IV heparin therapy. Allergies Allergy/AdvReac Type Severity Reaction Status Date / Time Nehlxcv-Vwu-But Reductase AdvReac Severe Feels like Unverified 03/12/21 14:52 Inhibitor cuts inside of mouth Home Medications Medication Instructions Recorded Confirmed Type multivit with min-folic acid 1 tab PO QAM 03/12/21 03/12/21 History [Multivitamin Gummies] Past Med/Surg History Medical History (Updated 03/12/21 @ 17:32 by Enrique Rosen) Asymptomatic microscopic hematuria Benign tumor of spinal cord History of DVT (deep vein thrombosis) Surgical History (Updated 03/12/21 @ 15:15 by Nell Cardenas PA-C) History of breast biopsy History of hernia repair History of hysterectomy History of tonsillectomy History of total right knee replacement (TKR) Family History Denies family history of Pulmonary embolism Social History (Updated 03/12/21 @ 15:16 by Nell Cardenas PA-C) Smoking Status: Former smoker Smoking End Date: 1989; Hx Alcohol Use: Yes Alcohol type: wine Hx Substance Use: No Preferred Language: Korean 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 Beliefs That Will Affect Care: None marital status: Current Living Situation: Spouse Other Information That Helps Us Care for You: No Feels Safe at Home: Yes Safety Concerns: Feels Safe At This Time Assistive Devices: Glasses Review of Systems Review of Systems: All systems reviewed & are unremarkable except as noted in HPI & below Physical Exam Physical Exam: Constitutional: WD/WN, F, vitals as above, NAD, sitting up in bed, pleasant, conversing easily Head: Normocephalic, Atraumatic Eyes: PERRL, conjunctivae normal, anicteric sclerae ENMT: external ear and nose normal, oropharynx normal Neck: trachea midline, no thyromegaly normal visual inspection Respiratory: 2L of O2 via NC, normal respiratory effort, lungs clear to auscultation, no wheeze, rales, rhonchi. Normal insp/exp effort, no accessory muscle use Cardiovascular: RRR, no murmur, LLE > RLE, + LLE edema Vessels: no JVD or carotid bruit Chest: normal inspection of chest Abdomen: normal bowel sounds, soft, nontender, no hepatosplenomegaly Musculoskeletal: no cyanosis or clubbing, extremities motor strength 5/5 Skin: no rashes, warm and dry normal turgor Neurologic: PERRL, EOMI, accommodation nl, no face palsy, no dysarthria CN's II-XI intact bilaterally and moves all extremities Psychiatric: A+Ox3, euthymic affect Lymphatic: no cervical or axillary lymphadenopathy : deferred Results & Data Results & Data ([facility]) Vital Signs (Past 12 Hours) Vital Signs Temp Pulse Resp BP Pulse Ox 03/12/21 13:20 87 22 98 03/12/21 13:16 92 H 21 96 03/12/21 12:40 88 23 100 03/12/21 12:30 87 20 90 03/12/21 12:20 91 H 23 98 03/12/21 12:10 93 H 21 97 03/12/21 12:00 93 H 19 99 06/08/21 11:50 91 H 21 98 03/12/21 11:40 92 H 24 03/12/21 11:35 89 25 H 03/12/21 11:20 87 25 H 96 03/12/21 11:10 94 H 25 H 95 03/12/21 11:00 88 19 97 03/12/21 10:50 95 H 26 H 86 L 03/12/21 10:41 94 H 19 92 03/12/21 10:38 92 03/12/21 10:37 94 H 26 H 155/98 H 96 03/12/21 10:04 36.2 C L 101 H 20 141/95 H 94 Diagnostic Findings Chest X-Ray 03/12/21 10:16 XR chest 2V PA/lateral CLINICAL HISTORY: Atypical chest pain COMPARISON STUDY: No previous studies for comparison. FINDINGS: The heart is the upper limits of normal in size. There is aortic tortuosity/ectasia. There is no failure. There is no focal pulmonary consolidation. There are no pleural effusions. Linear opacities visualized towards the right lung base likely are present right middle lobe subsegmental atelectasis/scarring. IMPRESSION: No active disease in the chest. ACT 112: Negative or not required by law. Electronically signed by: Juwan Rodas M.D. 03/12/2021 11:39 AM Chest CTA 03/12/21 11:51 CHEST CTA for PULMONARY ARTERIES CT DOSE: 310.95 mGy.cm HISTORY: Atypical chest pain. TECHNIQUE: Multiaxial CT images of the chest were performed following the intravenous administration of contrast to evaluate the pulmonary arteries. Maximal intensity projection images were also obtained. A dose lowering technique was utilized adhering to the principles of ALARA. COMPARISON STUDY: None. FINDINGS: Partially visualized 1.2 cm hypodensity within the left hepatic lobe anteriorly. This may represent an area of focal fat. The visualized spleen is unremarkable. There is a trace left pleural effusion. Normal caliber thoracic aorta with no evidence for dissection. There is mild flattening of the interventricular septum suggestive of mild right-sided heart strain. Extensive bilateral pulmonary emboli including a small saddle embolus at the bifurcation of the main pulmonary arteries. Multiple additional scattered pulmonary seen within the lobar and segmental branches of the majority of the bilateral pulmonary arteries. Normal esophagus. No mediastinal hilar lymphadenopathy. Levoscoliosis of the thoracic spine. No suspicious lytic or blastic osseous lesions. No pneumothorax. The central airways are patent. Small groundglass density the basal left lower lobe. This may represent atelectasis or a developing pulmonary infarct. A few additional linear densities within the right lung base favor subsegmental atelectasis or scarring. A 5 mm nodule within the left lower lobe on image 43. IMPRESSION: 1. Extensive bilateral pulmonary emboli including a saddle embolus at the main pulmonary arteries and mild right-sided heart strain. 2. Probable developing small pulmonary infarct within the left lower lobe. 3. Trace left pleural effusion. 4. A 5 mm indeterminate pulmonary nodule within the left lower lobe. Please refer to below summary of Fleischner criteria recommendations for follow- up of incidental CT nodules (Elan Panda, Guidelines for management of small pulmonary nodules detected on CT scans: A statement from the Fleischner Society, Radiology 237: [phone].) SOLID NODULES Solitary nodule size: <6 mm * Low risk patients: no follow-up needed * high risk patients: optional CT at 12 months Solitary nodule size: 6-8 mm * Low risk patients: follow-up at 6-12 months, then consider further follow-up at 18-24 months * high risk patients: initial follow-up CT at 6-12 months and then at 18-24 months if no change Solitary nodule size: >8 mm * either low or high risk patients - consider follow-up CT at 3 months, and/or CT-PET, and/or biopsy Multiple nodules size: <6 mm * Low risk patients: no routine follow-up * high risk patients: optional CT at 12 months Multiple nodules size: 6-8 mm * Low risk patients: follow-up at 3-6 months, then consider further follow-up at 18-24 months * high risk patients: follow-up at 3-6 months, then at 18-24 months if no change Multiple nodules size: >8 mm * Low risk patients: follow-up at 3-6 months, then consider further follow-up at 18-24 months * high risk patients: follow-up at 3-6 months, then at 18-24 months if no change Note: newly detected indeterminate nodule in persons 35 years of age or older. * Low risk patients: minimal or absent history of smoking and/or other known risk factors * high risk patients: history of smoking or of other known risk factors (e.g. first degree relative with lung cancer, or exposure to asbestos, radon, uranium) * if a nodule up to 8 mm is partly solid or is ground glass further follow-up is required after 24 months to exclude possible slow growing adenocarcinoma ([facility]) SUBSOLID NODULES Solitary pure ground-glass nodule * nodule size <6 mm - no CT follow-up required * nodule size >=6 mm - follow-up CT at 6-12 months, then every 2 years until 5 years Solitary part-solid nodule * nodule size <6 mm - no CT follow-up required * nodule size >=6 mm - follow-up CT at 3-6 months. If unchanged, and solid component remains <6 mm, then annual follow-up for 5 years Multiple subsolid nodules * nodule size <6 mm - follow-up CT at 3-6 months, consider further follow-up at 2 and 4 years if stable * nodule size >=6 mm - follow-up CT at 3-6 months, subsequent management based on the most suspicious nodule(s) ACT 112: Negative or not required by law. Electronically signed by: Asael Vu M.D. 03/12/2021 1:25 PM Medications Administered Medication List Heparin Sodium/Dextrose (Heparin Sodium/Dextrose) 25,000 units in 500 mls @ 23 mls/hr IV .[id number] [facility]; Protocol Stop: 04/11/21 11:40 Last Titration: 03/12/21 14:29 Dose: 1,150 units/hr, 23 mls/hr Documented by: [id number] Cosigned by: [id number] Admin: 03/12/21 11:35 Dose: 750 units/hr, 15 mls/hr Documented by: [id number] Cosigned by: [id number] Discontinued Medications Aspirin (Aspirin Chew 324 Mg) 324 mg PO NOW STA Stop: 03/12/21 10:17 Last Admin: 03/12/21 11:14 Dose: 324 mg Documented by: [id number] Heparin Sodium (Porcine) (Heparin Sod (Porcine) 1000 Unit/Ml) 4,000 units IV NOW STA Stop: 03/12/21 11:29 Last Admin: 03/12/21 11:38 Dose: 4,000 units Documented by: [id number] Cosigned by: [id number] Heparin Sodium/Dextrose (Heparin Iv Adult Wt-Based Standard *No* Bolus Protocol) 1 ea IV NOW STA Stop: 03/12/21 14:22 Last Admin: 03/12/21 14:31 Dose: 1 ea Documented by: [id number] Sodium Chloride (Nss 1000ml) 1,000 mls @ 999 mls/hr IV .Q1H1M STA Stop: 03/12/21 11:16 Last Infusion: 03/12/21 12:39 Dose: 0 mls/hr Documented by: [id number] Admin: 03/12/21 11:14 Dose: 999 mls/hr Documented by: [id number] Ioversol (Optiray 350 500ml) 117 ml IV ONCE ONE Stop: 03/12/21 13:06 Last Admin: 03/12/21 13:05 Dose: 117 ml Documented by: [id number] ECG Rate (beats per minute): 101 Rhythm: sinus tachycardia Findings: + ST depression and + T-wave inversion Additional Comments: Diffuse T wave inversion COVID-19 Results Results COVID-19 Adm Lab Results: RBC 4.38 M/uL (4.2-5.4) 03/12/21 WBC 8.70 K/uL (4.8-10.8) 03/12/21 Hgb 14.1 g/dL (12.0-16.0) 03/12/21 Hct 41.2 % (37-47) 03/12/21 Plt Count 342 K/uL (130-400) 03/12/21 Neutrophils (%) (Auto) 70.3 % 03/12/21 Lymphocytes (%) (Auto) 22.2 % 03/12/21 Monocytes # (Auto) 0.57 K/uL (0.11-0.59) 03/12/21 Eosinophils # (Auto) 0.05 K/uL (0-0.5) 03/12/21 Immature Granulocyte % (Auto) 0.1 % 03/12/21 Neutrophils # (Auto) 6.12 K/uL (1.4-6.5) 03/12/21 Lymphocytes # (Auto) 1.93 K/uL (1.2-3.4) 03/12/21 Monocytes # (Auto) 0.57 K/uL (0.11-0.59) 03/12/21 Eosinophils # (Auto) 0.05 K/uL (0-0.5) 03/12/21 Basophils # (Auto) 0.02 K/uL (0-0.2) 03/12/21 Immature Granulocyte # (Auto) 0.01 K/uL (0.00-0.02) 03/12/21 Na 139 mmol/L (136-145) 03/12/21 K 3.3 mmol/L (3.5-5.1) L 03/12/21 Cl 105 mmol/L (98-107) 03/12/21 CO2 27 mmol/L (21-32) 03/12/21 Anion Gap 7.0 (3-11) 03/12/21 BUN 12 mg/dl (7-18) 03/12/21 Creatinine 0.70 mg/dl (0.6-1.2) 03/12/21 BUN/Creatinine Ratio 17.0 (10-20) 03/12/21 Glucose Level 142 mg/dl (70-99) H 03/12/21 Ca 8.5 mg/dl (8.5-10.1) 03/12/21 Total Bilirubin 0.5 mg/dl (0.2-1) 03/12/21 Direct Bilirubin 0.1 mg/dl (0-0.2) 03/12/21 AST/SGOT 15 U/L (15-37) 03/12/21 ALT/SGPT 18 U/L (12-78) 03/12/21 Alkaline Phosphatase 72 U/L (45-117) 03/12/21 Total Protein 7.6 gm/dl (6.4-8.2) 03/12/21 Albumin 3.4 gm/dl (3.4-5.0) 03/12/21 Troponin I 0.197 ng/ml (0-0.045) H* 03/12/21 D-Dimer 5300 ug/L FEU (0-500) H* 03/12/21 PTT 44.4 Seconds (21.0-31.0) H 03/12/21 INR 1.0 (0.9-1.1) 03/12/21 COVID-19 PCR NEGATIVE (Negative) 03/12/21 Chest X-Ray 03/12/21 Code Status & VTE Plan Code Status Full code VTE Prophylaxis Plan VTE Prophylaxis will be ordered: No Supervising Physician Co-Signing Physician Notes I have seen and examined the patient and have discussed the case with the provider above. I agree with the assessment and plan as stated. 70 yo F with h/o two ?provoked DVTs in the past presents today with a saddle pulmonary embolus. She is on oxygen but is not working to breathe. She reports that since starting the heparin she feels better. Denies chest pain. Denies leg or thigh pain. Physical exam reveals slight tachycardia, normal mental status, and NAD. She is smiling and happy in conversation. Lungs are clear to auscultation bilaterally and heart sounds reveal S1/2 heard without m/g/r. No edema or swelling of the legs bilaterally. She will continue on the heparin drip for now while on oxygen. Transition to oral anticoagulant closer to discharge. Hematology referral as outpatient recommended for a hypercoagulable workup. Age-appropriate cancer screenings also recommended as outpatient. DO [employer]
--- NOTE | 2021-03-12 16:35 | Ultrasound Report ---
BILATERAL LOWER EXTREMITY VENOUS DOPPLER CLINICAL HISTORY: RLE swelling, PE COMPARISON STUDY: No previous studies for comparison. TECHNIQUE: Sonography of the deep venous system of the bilateral lower extremities was performed. Co mpression and augmentation were evaluated. FINDINGS: There is no deep venous thrombus within the right lower extremity. Note is made of deep albert ous thrombus within the left superficial femoral vein. IMPRESSION: Deep venous thrombus within the left superficial femoral vein. ACT 112: Negative or not required by law. Electronically signed by: Sahil Ortiz M.D. 03/12/2021 4:33 PM
[2021-03-12] MEDS ORDERED: ALUMINUM/MAGNESIUM SUSP 30 ML UDC PO PRN (18:04)
[2021-03-12] MEDS ORDERED: MAGNESIUM HYDROXIDE SUSP 30 ML UDC PO PRN (18:04)
[2021-03-12] MEDS ORDERED: ONDANSETRON INJ 2 MG/ML 2 ML VIAL IV PRN (18:04)
[2021-03-12] MEDS ORDERED: POLYETHYLENE (MIRALAX) 17 GM PACK PO PRN (18:04)
[2021-03-12 18:59] LABS: Partial Thromboplastin Ratio 1.7; Partial Thromboplastin Time 44.4 Seconds (21.0-31.0)
[2021-03-12 20:37] LABS: Appearance Urine Clear (Clear); Bacteria Urine Automated Negative (Negative); Bilirubin Urine Negative (Negative); Blood Urine 2+ (Negative); Color Urine Yellow; Epithelial Cell Urine Auto 20-30 /lpf (0-5); Glucose Urine UA Negative (Negative); Ketones Urine 2+ (Negative); Leukocyte Esterase Urine Trace (Negative); Nitrite Urine Negative (Negative); Protein Urine Negative (Negative); Specific Gravity Urine 1.025 (1.000-1.030); Urobilinogen Urine Positive (Negative)
[2021-03-12] MEDS: ACETAMINOPHEN 325 MG TAB PO PRN (22:43)
[2021-03-13 01:33] LABS: Basophils # (auto) 0.02 K/uL (0-0.2); Basophils % (auto) 0.2 %; Eosinophils # (auto) 0.18 K/uL (0-0.5); Eosinophils % (auto) 2.1 %; Hematocrit (blood only) 33.9 % (37-47); Hemoglobin 11.5 g/dL (12.0-16.0); Immature Granulocytes # (auto) 0.02 K/uL (0.00-0.02); Immature Granulocytes % (auto) 0.2 %; Lymphocytes % (auto) 39.4 %; Mean Corpuscular Hemoglobin 31.7 pg (25-34); Mean Corpuscular Hgb Conc 33.9 g/dL (32-36); Mean Corpuscular Volume 93.4 fL (80-100); Mean Platelet Volume 9.8 fL (7.4-10.4); Monocytes # (auto) 0.62 K/uL (0.11-0.59); Monocytes % (auto) 7.2 %; Neutrophils % (auto) 50.9 %; Platelet Count 261 K/uL (130-400); RDW Coefficient of Variation 13.3 % (11.5-14.5); RDW Standard Deviation 45.2 fL (36.4-46.3); Red Blood Count 3.63 M/uL (4.2-5.4); White Blood Count 8.64 K/uL (4.8-10.8)
[2021-03-13 02:04] LABS: Partial Thromboplastin Time 52.6 Seconds (21.0-31.0)
[2021-03-13 02:11] LABS: BUN Creatinine Ratio 20.9 (10-20); Calcium 8.1 mg/dl (8.5-10.1); Creatinine Clr Calc Pharmacy 103.9 ml/min; Est GFR (African American) 112.9 ml/min; Est GFR (Non-African American) 97.4 ml/min; Magnesium 2.4 mg/dl (1.8-2.4); Potassium 4.1 mmol/L (3.5-5.1)
--- NOTE | 2021-03-13 06:11 | Electrocardiogram Report ---
Test Reason : Blood Pressure : / mmHG Vent. Rate : 101 BPM Atrial Rate : 101 BPM P-R Int : 156 ms QRS Dur : 088 ms QT Int : 388 ms P-R-T Axes : 026 -34 -64 degrees QTc Int : 503 ms Sinus tachycardia Left axis deviation Inferior infarct , age undetermined T wave abnormality, consider inferior ischemia Abnormal ECG No previous ECGs available Confirmed by Angel Lynn ([id number]) on 03/13/2021 6:11:22 AM Referred By: Confirmed By:Angel Lynn
[2021-03-13 07:43] LABS: Estimated Average Glucose 114 mg/dl; Hemoglobin A1C 5.6 % (4.5-5.6)
[2021-03-13] MEDS: CEROVITE ADV FORMULA TAB PO SCH (08:13)
--- NOTE | 2021-03-13 09:53 | Cardiology Consultation ---
Date of Consultation March 13, 2021 Assessment & Plan (1) Right ventricular dysfunction: (2) Saddle pulmonary embolus: (3) Elevated troponin: (4) Dyslipidemia: (5) Recurrent deep vein thrombosis (DVT): (6) Sinus pause: ASSESSMENT/PLAN: 1. Right ventricular dysfunction: Her RV dilation and systolic dysfunction is likely related to her pulmonary emboli/saddle embolus. We discussed finding on echo. Hopefully this improves with continued treatment of her PE. Fortunately, she is feeling much better today. Will repeat an echo as an outpatient, which will be arranged on follow-up visit. 2. Elevated troponin: Likely due to pulmonary emboli/RV strain. She did not present with acute coronary syndrome. No ischemic evaluation recommended. 3. Bilateral pulmonary emboli/saddle embolus: As per primary service. Much improved from a symptomatic standpoint on anticoagulation therapy. 4. Recurrent DVT: Her first 2 episodes were felt to be provoked based on her description and therefore were treated for short period of time. Now has an unprovoked DVT with extensive PE. The decision has been made for indefinite anticoagulation therapy. She has a granddaughter who also has had PE. Could consider this for her to lithographer helper in screening process for other family members, if applicable. Will defer to primary service. 5. Sinus pause: Occurred while sleeping. Asymptomatic. She does report snoring and rare paroxysmal nocturnal dyspnea. We discussed the potential for s leep apnea. Would consider sleep study once recovered from her PE, as an outpatient. No specific cardiac therapy necessary at this time. She has not had any syncope as an outpatient. 6. Dyslipidemia: Apparently was on statin therapy in the past but did not tolerate. Most recent lipids are not known to me at the time of this note. She follows with her PCP. 7. Disposition: Please call with any other questions or concerns. Can follow- up in the outpatient cardiology office in the next few weeks. Thank you for allowing me to participate in the care of your patient. Please call for any other questions or concerns. Sincerely, Carlos Lynn M.D. History of Present Illness Reason for Consultation: "Saddle PE; R heart strain; elevated trop" Requesting Physician: Dr. Meng Attending Physician: Van Dominique MD History of Present Illness Mrs. Alvarez is a very pleasant 70-year-old female with history significant for recurrent DVT and dyslipidemia. She was hospitalized on 03/12/2021 with extensive bilateral pulmonary emboli including a saddle embolus with evidence of right-sided heart strain on CT scan. Cardiology was consulted due to right heart strain with elevated troponin. She had her first DVT in approximately 1999 while on hormonal replacement therapy. She was treated with anticoagulation in the form of warfarin, which was later discontinued. She had a second DVT in her lower extremity somewhere between 2012 and 2016 following back surgery. Both of these episodes were thought to be provoked and therefore was not maintained on indefinite anticoagulation therapy. On 03/08/2021, she developed shortness of breath with exertion. On 03/10/21, she had bad indigestion in her epigastric area. On 03/11/2021, her shortness of breath was much more significant, occurring even at rest. After CTA imaging was completed, she was felt not to be a candidate for tPA. She was offered evaluation at another facility by Dr. Rodriguez for possible catheter directed thrombolysis. She declined and was started on anticoagulation here. Overall, she feels much better today. She has not noted any significant shortness of breath, even while ambulating to the bathroom. She has not done any significant exertional activities while hospitalized. She maintains 2 L of supplemental oxygen via nasal cannula. An echocardiogram was done which d emonstrated dilated RV with reduced systolic function. Her troponin was initially elevated at 0.95 and has since trended downward. She has not had any chest discomfort. She had hematuria approximately 6 weeks ago which prompted treatment for UTI. She states that there was some discussion with her PCP that she may be having a bladder issue but hematuria has resolved and she has not noted any other bleeding such as melena or hematochezia. She denies syncope, near-syncope, palpitations, edema. She has not noted any significant leg pain/discomfort. Review of systems: As above. Review of systems otherwise negative/unremarkable. Family history: Father diagnosis with GA near the age of 50 and then at 62 with GA. granddaughter has had pulmonary embolus. Social history: She quit smoking in approximately 1989, smoking less than 1 pack per day. She consumes approximately 2 glasses of wine per day. No drugs. She lives at home with her . She has 2 children. 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 She was unaccompanied in her hospital room. Allergies Allergy/AdvReac Type Severity Reaction Status Date / Time Algenqb-Cgg-Sjh Reductase AdvReac Severe Feels like Unverified 03/12/21 14:52 Inhibitor cuts inside of mouth Home Medications Medication Instructions Recorded Confirmed Type multivit with min-folic acid 1 tab PO QAM 03/12/21 03/12/21 History [Multivitamin Gummies] Patient History Medical History (Updated 03/13/21 @ 13:24 by Angel Lynn MD) Asymptomatic microscopic hematuria Benign tumor of spinal cord Dyslipidemia Recurrent deep vein thrombosis (DVT) Saddle pulmonary embolus Surgical History (Updated 03/12/21 @ 15:15 by Nell Cardenas PA-C) History of breast biopsy History of hernia repair History of hysterectomy History of tonsillectomy History of total right knee replacement (TKR) Family History Denies family history of Pulmonary embolism Social History (Updated 03/12/21 @ 15:16 by Nell Cardenas PA-C) Smoking Status: Former smoker Smoking End Date: 1989; Hx Alcohol Use: Yes Alcohol type: wine Hx Substance Use: No Preferred Language: Ukrainian Communication Ability: Effective Change Booth Attendant Required: No Beliefs That Will Affect Care: None marital status: Current Living Situation: Spouse Other Information That Helps Us Care for You: No Feels Safe at Home: Yes Safety Concerns: Feels Safe At This Time Assistive Devices: Glasses Physical Exam Physical Exam: Gen.: No acute distress. Alert and oriented. HEENT: Anicteric sclera. Neck: No JVD. No bruits. Normal carotid upstrokes bilaterally. Cardiac: PMI was nondisplaced. No ventricular heave. Regular rate and rhythm. Normal S1-S2. No murmurs, rubs, or gallops. Pulmonary: Clear to auscultation bilaterally without wheezes, rales, or rhonchi. Abdomen: Soft, nontender, nondistended, with normoactive bowel sounds. No bruits noted. Extremities: 2+ radial pulses bilaterally. 2+ posterior tibialis pulses bilaterally. No edema or cyanosis. No palpable cords. Psychiatric: Affect appears appropriate. Results & Data ([facility]) Vital Signs (Past 12 Hours) Vital Signs Temp Pulse Resp BP Pulse Ox 03/13/21 08:11 36.9 C 85 18 128/63 99 03/13/21 02:43 36.4 C L 85 20 120/85 97 03/13/21 00:01 36.8 C 90 18 108/92 97 Laboratory Results Laboratory Results - last 24 hr 03/12/21 03/12/21 03/12/21 15:42 18:36 20:10 WBC RBC Hgb Hct MCV MCH MCHC RDW Std Deviation RDW Coeff of Avery Plt Count MPV Immature Gran % (Auto) Neut % (Auto) Lymph % (Auto) Mcleod % (Auto) Eos % (Auto) Baso % (Auto) Neut # (Auto) Lymph # (Auto) Mcleod # (Auto) Eos # (Auto) Baso # (Auto) Immature Gran # (Auto) APTT 44.4 H PTT Ratio 1.7 Sodium Potassium Chloride Carbon Dioxide Anion Gap BUN Creatinine Est Cr Clr Drug Dosing Est GFR ( Amer) Est GFR (Non-Af Amer) BUN/Creatinine Ratio Glucose Estimat Average Glucose Hemoglobin A1c Calcium Magnesium Troponin I 0.251 H* Urine Color Yellow Urine Appearance Clear Urine pH 7.0 Ur Specific Lynn 1.025 Urine Protein Negative Urine Glucose (UA) Negative Urine Ketones 2+ H Urine Blood 2+ H Urine Nitrite Negative Urine Bilirubin Negative Urine Urobilinogen Positive H Ur Leukocyte Esterase Trace H Urine WBC (Auto) 1-5 Urine RBC (Auto) 10-30 H U Hyaline Cast (Auto) 1-5 U Epithel Cells (Auto) 20-30 H Urine Bacteria (Auto) Negative 03/12/21 03/13/21 03/13/21 22:23 01:15 01:15 WBC 8.64 RBC 3.63 L Hgb 11.5 L Hct 33.9 L MCV 93.4 MCH 31.7 MCHC 33.9 RDW Std Deviation 45.2 RDW Coeff of Avery 13.3 Plt Count 261 MPV 9.8 Immature Gran % (Auto) 0.2 Neut % (Auto) 50.9 Lymph % (Auto) 39.4 Mcleod % (Auto) 7.2 Eos % (Auto) 2.1 Baso % (Auto) 0.2 Neut # (Auto) 4.40 Lymph # (Auto) 3.40 Mcleod # (Auto) 0.62 H Eos # (Auto) 0.18 Baso # (Auto) 0.02 Immature Gran # (Auto) 0.02 APTT 52.6 H* PTT Ratio 2.0 Sodium Potassium Chloride Carbon Dioxide Anion Gap BUN Creatinine Est Cr Clr Drug Dosing Est GFR ( Amer) Est GFR (Non-Af Amer) BUN/Creatinine Ratio Glucose Estimat Average Glucose Hemoglobin A1c Calcium Magnesium Troponin I 0.197 H* Urine Color Urine Appearance Urine pH Ur Specific Lynn Urine Protein Urine Glucose (UA) Urine Ketones Urine Blood Urine Nitrite Urine Bilirubin Urine Urobilinogen Ur Leukocyte Esterase Urine WBC (Auto) Urine RBC (Auto) U Hyaline Cast (Auto) U Epithel Cells (Auto) Urine Bacteria (Auto) 03/13/21 03/13/21 03/13/21 01:15 01:15 11:30 WBC RBC Hgb Hct MCV MCH MCHC RDW Std Deviation RDW Coeff of Avery Plt Count MPV Immature Gran % (Auto) Neut % (Auto) Lymph % (Auto) Mcleod % (Auto) Eos % (Auto) Baso % (Auto) Neut # (Auto) Lymph # (Auto) Mcleod # (Auto) Eos # (Auto) Baso # (Auto) Immature Gran # (Auto) APTT PTT Ratio Sodium 142 Potassium 4.1 D Chloride 110 H Carbon Dioxide 27 Anion Gap 5.0 BUN 11 Creatinine 0.51 L Est Cr Clr Drug Dosing 103.9 Est GFR ( Amer) 112.9 Est GFR (Non-Af Amer) 97.4 BUN/Creatinine Ratio 20.9 H Glucose 97 Estimat Average Glucose 114 Hemoglobin A1c 5.6 Calcium 8.1 L Magnesium 2.4 Troponin I Urine Color Yellow Urine Appearance Clear Urine pH 7.5 Ur Specific Lynn 1.008 Urine Protein Negative Urine Glucose (UA) Negative Urine Ketones Negative Urine Blood Trace H Urine Nitrite Negative Urine Bilirubin Negative Urine Urobilinogen Negative Ur Leukocyte Esterase Negative Urine WBC (Auto) 0 Urine RBC (Auto) 0-4 U Hyaline Cast (Auto) 0 U Epithel Cells (Auto) 0-5 Urine Bacteria (Auto) Negative Diagnostic Findings Telemetry personally reviewed: Sinus rhythm with sinus tachycardia at times. 3.2 second pause at 2:34 a.m. on 03/13/2021. No arrhythmia. ECGs personally reviewed: ECG 03/12/2021: Sinus tachycardia 101 beats per minute. Inferior infarct. Inferior and anterolateral T-wave inversions. ECG 03/13/2021: Sinus rhythm 79 beats per minute. Inferior T-wave inversion. Anterior T-wave inversion. Inferior infarct. CTA chest report reviewed as noted above in HPI. CTA chest 03/12/2021: Extensive bilateral pulmonary emboli including saddle embolus at the main pulmonary arteries with mild right-sided heart strain. Probable developing small pulmonary infarct within the left lower lobe. Venous Doppler study 03/12/2021: DVT within the left superficial femoral vein. Echo 03/12/2021: Normal left ventricular size and systolic function. EF 55- 60%. Moderately to severely dilated RV with severely reduced systolic function. Dilated right atrium. Mild MR. RVSP 23. Echo images personally reviewed: Dilated RV with reduced systolic function. Hale sign noted. Medications Administered Current Inpatient Medications Acetaminophen (Acetaminophen 325 Mg Tab) 650 mg PO Q4H PRN PRN Reason: Pain or Fever Stop: 04/11/21 18:03 Last Admin: 03/12/21 22:43 Dose: 650 mg Documented by: Al Hydrox/Mg Hydrox/Simethicone (Aluminum/Magnesium Susp 30 Ml Udc) 15 ml PO Q4H PRN PRN Reason: Dyspepsia Stop: 04/11/21 18:03 Heparin Sodium/Dextrose (Heparin Sodium/Dextrose) 25,000 units in 500 mls @ 23 mls/hr IV .[id number] [facility]; Protocol Stop: 04/11/21 11:40 Last Admin: 03/13/21 10:14 Dose: 1,200 units/hr, 24 mls/hr Documented by: Magnesium Hydroxide (Magnesium Hydroxide Susp 30 Ml Udc) 30 ml PO Q12H PRN PRN Reason: Constipation Stop: 04/11/21 18:03 Multivitamins/Minerals (Cerovite Adv Formula Tab) 1 [facility] Stop: 04/12/21 08:59 Last Admin: 03/13/21 08:13 Dose: 1 tab Documented by: Ondansetron HCl (Ondansetron Inj 2 Mg/Ml 2 Ml Vial) 4 mg IV Q6H PRN PRN Reason: Nausea Stop: 04/11/21 18:03 Polyethylene Glycol (Polyethylene (Miralax) 17 Gm Pack) 17 gm PO DAILY PRN PRN Reason: Constipation Stop: 04/11/21 18:03 PG Care Time/CCT Total # of Minutes Spent Total Time Spent with Patient: Total time spent is greater than 50% in coordination of care (as documented) at patient's floor/unit and/or counseling patient: Coding Level of Care Code 91703 Initial Inpt Care Lvl 3 Diagnoses Right ventricular dysfunction I51.9 Saddle pulmonary embolus I26.02 Acute cor pulmonale presence: with acute cor pulmonale Chronicity: acute Elevated troponin R77.8 Dyslipidemia E78.5 Recurrent deep vein thrombosis (DVT) I82.409 Sinus pause I45.5 (1) Saddle pulmonary embolus Acute cor pulmonale presence: with acute cor pulmonale Chronicity: acute Qualified Code(s): I26.02 - Saddle embolus of pulmonary artery with acute cor pulmonale
[2021-03-13] MEDS: HEPARIN SODIUM/DEXTROSE 25,000 UNITS/500 ML BAG IV SCH (10:14)
[2021-03-13 12:19] LABS: Appearance Urine Clear (Clear); Bacteria Urine Automated Negative (Negative); Bilirubin Urine Negative (Negative); Blood Urine Trace (Negative); Cast Urine Automated 0 /lpf (0-5); Color Urine Yellow; Epithelial Cell Urine Auto 0-5 /lpf (0-5); Glucose Urine UA Negative (Negative); Ketones Urine Negative (Negative); Leukocyte Esterase Urine Negative (Negative); Nitrite Urine Negative (Negative); Protein Urine Negative (Negative); RBC Urine Automated 0-4 /hpf (0-4); Specific Gravity Urine 1.008 (1.000-1.030); Urobilinogen Urine Negative (Negative); WBC Urine Automated 0 /hpf (0-5); pH Urine 7.5 (4.5-7.5)
--- NOTE | 2021-03-13 15:40 | Hospitalist Progress Note ---
Date of Service March 13, 2021 Assessment & Plan (1) Saddle pulmonary embolus: (2) Hypoxia: (3) Left leg DVT: (4) Elevated troponin: Patient is a 70 yr female with H/O DVT x2 in the past, one provoked by hormone replacement therapy who presents to ED secondary to shortness of breath x 4 da ys. Acute bilateral pulmonary embolism Acute left lower extremity deep vein thrombosis Hypoxia secondary to above Type II [place] due to above -CTA: Extensive bilateral pulmonary emboli including a saddle embolus at the main pulmonary arteries and mild right-sided heart strain. Probable developing small pulmonary infarct within the left lower lobe. Trace left pleural effusion. A 5 mm indeterminate pulmonary nodule within the left lower lobe. -Venous Doppler:Deep venous thrombus within the left superficial femoral vein. -ECHO: The right ventricle is moderate to severely dilated. Right ventricle systolic function is severely reduced. There is no evidence of pulmonary hypertension. Left ventricle is normal in size. EF 55 to 60%. Mild mitral regurgitation, tricuspid regurgitation. No pericardial effusion -Hypercoagulable work-up as outpatient -Troponin trended down -Continue supplemental oxygen as needed -Continue IV heparin for now -Patient interested in DOACs -Appreciate critical care, Cardiology input (5) Hypokalemia: Replace electrolytes as needed Monitor (6) Pulmonary nodule: Incidental finding on CT CT as above Needs follow up CT in 12 months DVT Px On heparin drip CODE STATUS Full code Disposition Expected discharge home when medically stable Admission and Anticipated Discharge Date Admission Date: March 12, 2021 Subjective Patient is seen and examined at bedside States feeling better today Dyspnea improved from the time of admission Denies chest pain, dizziness, nausea, abdominal pain Denies any bleeding issues On heparin ggt Offers no other complaints Review of Systems Review of Systems: All systems reviewed & are unremarkable except as noted in HPI & below Physical Exam Physical Exam: Physical Exam: Vitals signs as noted above General Appearance:Moderately built and nourished, no apparent distress Head: normocephalic, Atraumatic Eyes: normal inspection, EOMI Neck: supple, Trachea midline Respiratory/Chest: Normal breath sounds, CTA, No accessory muscle use Cardiovascular: S1, S2, No murmur Abdomen/GI:Soft, Non tender, Bowel sounds present Extremities/Musculoskeletal:normal inspection, 1+ B/L LE edema Neurologic/Psych:AAOX3, grossly no focal neurological deficits Skin: normal color, warm Results & Data Results & Data ([facility]) Vital Signs (Past 12 Hours) Vital Signs Temp Pulse Pulse Resp BP Pulse Ox 03/13/21 11:44 36.8 C 87 18 125/58 L 98 03/13/21 09:35 81 03/13/21 08:11 36.9 C 85 18 128/63 99 Laboratory Results Short CBC 03/13/21 Range/Units 01:15 WBC 8.64 (4.8-10.8) K/uL Hgb 11.5 L (12.0-16.0) g/dL Hct 33.9 L (37-47) % Plt Count 261 (130-400) K/uL BMP 03/13/21 01:15 Sodium 142 Potassium 4.1 D Chloride 110 H Carbon Dioxide 27 BUN 11 Creatinine 0.51 L Glucose 97 Calcium 8.1 L Cardiac Enzymes 03/12/21 03/12/21 Range/Units 15:42 22:23 Troponin I 0.251 H* 0.197 H* (0-0.045) ng/ml Urine 03/12/21 03/13/21 Range/Units 20:10 11:30 Urine Color Yellow Yellow Urine Appearance Clear Clear (Clear) Urine pH 7.0 7.5 (4.5-7.5) Ur Specific [place] 1.025 1.008 (1.000-1.030) Urine Protein Negative Negative (Negative) Urine Glucose (UA) Negative Negative (Negative) (1) Saddle pulmonary embolus Acute cor pulmonale presence: with acute cor pulmonale Chronicity: acute Qualified Code(s): I26.02 - Saddle embolus of pulmonary artery with acute cor pulmonale
[2021-03-13] MEDS: ACETAMINOPHEN 325 MG TAB PO PRN (19:57)
[2021-03-14] MEDS: HEPARIN SODIUM/DEXTROSE 25,000 UNITS/500 ML BAG IV SCH (06:23)
[2021-03-14 08:18] LABS: Hematocrit (blood only) 37.9 % (37-47); Hemoglobin 12.6 g/dL (12.0-16.0); Mean Corpuscular Hemoglobin 31.7 pg (25-34); Mean Corpuscular Hgb Conc 33.2 g/dL (32-36); Mean Corpuscular Volume 95.5 fL (80-100); Mean Platelet Volume 9.9 fL (7.4-10.4); Platelet Count 325 K/uL (130-400); RDW Coefficient of Variation 13.3 % (11.5-14.5); RDW Standard Deviation 46.4 fL (36.4-46.3); Red Blood Count 3.97 M/uL (4.2-5.4); White Blood Count 8.18 K/uL (4.8-10.8)
[2021-03-14 08:40] LABS: Partial Thromboplastin Ratio 2.3
[2021-03-14 08:49] LABS: BUN Creatinine Ratio 24.5 (10-20); Creatinine Clr Calc Pharmacy 140.1 ml/min; Est GFR (African American) 124.4 ml/min; Est GFR (Non-African American) 107.3 ml/min; Magnesium 2.3 mg/dl (1.8-2.4); Potassium 3.7 mmol/L (3.5-5.1)
[2021-03-14 09:13] LABS: Partial Thromboplastin Time 59.3 Seconds (21.0-31.0)
[2021-03-14] MEDS: CEROVITE ADV FORMULA TAB PO SCH (09:33)
--- NOTE | 2021-03-14 15:27 | Hospitalist Progress Note ---
Date of Service March 14, 2021 Assessment & Plan (1) Saddle pulmonary embolus: (2) Hypoxia: (3) Left leg DVT: (4) Elevated troponin: Patient is a 70 yr female with H/O DVT x2 in the past, one provoked by hormone replacement therapy who presents to ED secondary to shortness of breath x 4 d ays. Acute bilateral pulmonary embolism Acute left lower extremity deep vein thrombosis Hypoxia secondary to above Type II [place] due to above -CTA: Extensive bilateral pulmonary emboli including a saddle embolus at the main pulmonary arteries and mild right-sided heart strain. Probable developing small pulmonary infarct within the left lower lobe. Trace left pleural effusion. A 5 mm indeterminate pulmonary nodule within the left lower lobe. -Venous Doppler:Deep venous thrombus within the left superficial femoral vein. -ECHO: The right ventricle is moderate to severely dilated. Right ventricle systolic function is severely reduced. There is no evidence of pulmonary hypertension. Left ventricle is normal in size. EF 55 to 60%. Mild mitral regurgitation, tricuspid regurgitation. No pericardial effusion -Hypercoagulable work-up as outpatient -Troponin trended down -Continue supplemental oxygen as needed -Patient interested in DOACs- Eliquis -Appreciate critical care, Cardiology input Given significant clot burden, continue IV heparin for now (5) Hypokalemia: Replace electrolytes as needed Monitor (6) Pulmonary nodule: Incidental finding on CT CT as above Needs follow up CT in 12 months DVT Px On heparin drip CODE STATUS Full code Disposition Expected discharge home when medically stable Admission and Anticipated Discharge Date Admission Date: March 12, 2021 Subjective Patient is seen and examined at bedside Reports minimal dyspnea on exertion Nauseous earlier today but resolved No bleeding issues while on IV heparin Denies chest pain, dizziness, nausea, abdominal pain Review of Systems Review of Systems: All systems reviewed & are unremarkable except as noted in HPI & below Physical Exam Physical Exam: Physical Exam: Vitals signs as noted above General Appearance:Moderately built and nourished, no apparent distress Head: normocephalic, Atraumatic Eyes: normal inspection, EOMI Neck: supple, Trachea midline Respiratory/Chest: Normal breath sounds, CTA, No accessory muscle use Cardiovascular: S1, S2, No murmur Abdomen/GI:Soft, Non tender, Bowel sounds present Extremities/Musculoskeletal:normal inspection, 1+ B/L LE edema Neurologic/Psych:AAOX3, grossly no focal neurological deficits Skin: normal color, warm Results & Data Results & Data ([facility]) Vital Signs (Past 12 Hours) Vital Signs Temp Pulse Pulse Resp BP Pulse Ox 03/14/21 15:11 82 03/14/21 15:04 36.6 C 90 23 130/85 96 03/14/21 14:58 89 03/14/21 11:41 36.4 C L 86 20 120/76 96 03/14/21 08:31 82 03/14/21 07:46 36.9 C 86 21 126/82 94 Laboratory Results Short CBC 03/14/21 Range/Units 07:35 WBC 8.18 (4.8-10.8) K/uL Hgb 12.6 (12.0-16.0) g/dL Hct 37.9 (37-47) % Plt Count 325 (130-400) K/uL BMP 03/14/21 07:35 Sodium 141 Potassium 3.7 Chloride 109 H Carbon Dioxide 26 BUN 9 Creatinine 0.38 L Glucose 86 Calcium 9.0 (1) Saddle pulmonary embolus Acute cor pulmonale presence: with acute cor pulmonale Chronicity: acute Qualified Code(s): I26.02 - Saddle embolus of pulmonary artery with acute cor pulmonale
--- NOTE | 2021-03-14 21:02 | Cardiology Progress Note ---
Date of Service March 14, 2021 Assessment & Plan (1) Right ventricular dysfunction: (2) Saddle pulmonary embolus: (3) Elevated troponin: (4) Dyslipidemia: (5) Recurrent deep vein thrombosis (DVT): (6) Sinus pause: ASSESSMENT/PLAN: 1. Right ventricular dysfunction: Her RV dilation and systolic dysfunction is likely related to her pulmonary emboli/saddle embolus. Hopefully this improves with continued treatment of her PE. She continues to feel better on a daily basis. Will repeat an echo as an outpatient, which will be arranged on follow- up visit. 2. Elevated troponin: Likely due to pulmonary emboli/RV strain. She did not present with acute coronary syndrome. No ischemic evaluation recommended. 3. Bilateral pulmonary emboli/saddle embolus: Much improved from a symptomatic standpoint on anticoagulation therapy. Granddaughter with factor 5 Leiden gene. Defer anticoagulation therapy to primary service. 4. Recurrent DVT: Her first 2 episodes were felt to be provoked based on her description and therefore were treated for short period of time. Now has an unprovoked DVT with extensive PE. The decision has been made for indefinite anticoagulation therapy. She has a granddaughter who also has had PE with factor 5 Leiden gene. As per primary service. 5. Sinus pause: Occurred while sleeping during initial 24 hours of hospitalization. Asymptomatic. She does report snoring and rare paroxysmal nocturnal dyspnea. We discussed the potential for sleep apnea. Would consider sleep study once recovered from her PE, as an outpatient. No specific cardiac therapy necessary at this time. She has not had any syncope as an outpatient. No recurrent pause. 6. Dyslipidemia: Apparently was on statin therapy in the past but did not tolerate. Followed by PCP. 7. Disposition: Please call with any other questions or concerns. Can follow- up in the outpatient cardiology office in the next few weeks. Admission and Anticipated Discharge Date Admission Date: March 12, 2021 Subjective She was seen earlier today. She feels much better today. She was able to ambulate in her room, on supplemental oxygen, without dyspnea. She denies orthopnea, shortness of breath, syncope, near-syncope, palpitations, edema, or bleeding. She states that plans for the day were to attempt weaning of her supplemental oxygen and also going for a walk in the hallway. She was able to find out that her granddaughter has factor 5 Leiden gene. She was asked to discuss this with the primary service as well. Review of systems: As above. Physical Exam Physical Exam: Gen.: No acute distress. Alert and oriented. HEENT: Anicteric sclera. Neck: No JVD Cardiac: No ventricular heave. Regular. Normal S1-S2. No murmurs, rubs, or gallops. Pulmonary: Clear to auscultation bilaterally without wheezes, rales, or rhonchi. Abdomen: Soft, nontender, nondistended, with normoactive bowel sounds. No bruits noted. Extremities: 2+ radial pulses bilaterally. Trace bilateral lower extremity edema. No cyanosis. Psychiatric: Affect appears appropriate. Results & Data ([facility]) Vital Signs (Past 12 Hours) Vital Signs Temp Pulse Pulse Resp BP Pulse Ox 03/14/21 20:29 36.7 C 90 18 127/79 96 03/14/21 15:11 82 03/14/21 15:04 36.6 C 90 23 130/85 96 03/14/21 14:58 89 03/14/21 11:41 36.4 C L 86 20 120/76 96 Laboratory Results Laboratory Results - last 24 hr 03/14/21 03/14/21 03/14/21 07:35 07:35 07:35 WBC 8.18 RBC 3.97 L Hgb 12.6 Hct 37.9 MCV 95.5 MCH 31.7 MCHC 33.2 RDW Std Deviation 46.4 H RDW Coeff of Avery 13.3 Plt Count 325 MPV 9.9 APTT 59.3 H* PTT Ratio 2.3 Sodium 141 Potassium 3.7 Chloride 109 H Carbon Dioxide 26 Anion Gap 7.0 BUN 9 Creatinine 0.38 L Est Cr Clr Drug Dosing 140.1 Est GFR ( Amer) 124.4 Est GFR (Non-Af Amer) 107.3 BUN/Creatinine Ratio 24.5 H Glucose 86 Calcium 9.0 Magnesium 2.3 Diagnostic Findings Telemetry personally reviewed: Sinus rhythm. Heart rate has improved, with much less tachycardia. No significant pauses or arrhythmia noted. Chart reviewed. Medications Administered Current Inpatient Medications Acetaminophen (Acetaminophen 325 Mg Tab) 650 mg PO Q4H PRN PRN Reason: Pain or Fever Stop: 04/11/21 18:03 Last Admin: 03/13/21 19:57 Dose: 650 mg Documented by: Al Hydrox/Mg Hydrox/Simethicone (Aluminum/Magnesium Susp 30 Ml Udc) 15 ml PO Q4H PRN PRN Reason: Dyspepsia Stop: 04/11/21 18:03 Heparin Sodium/Dextrose (Heparin Sodium/Dextrose) 25,000 units in 500 mls @ 24 mls/hr IV .[id number] [facility]; Protocol Stop: 04/11/21 11:40 Last Titration: 03/14/21 19:21 Dose: 1,200 units/hr, 24 mls/hr Documented by: Magnesium Hydroxide (Magnesium Hydroxide Susp 30 Ml Udc) 30 ml PO Q12H PRN PRN Reason: Constipation Stop: 04/11/21 18:03 Multivitamins/Minerals (Cerovite Adv Formula Tab) 1 tab PO QAM [facility] Stop: 04/12/21 08:59 Last Admin: 03/14/21 09:33 Dose: 1 tab Documented by: Ondansetron HCl (Ondansetron Inj 2 Mg/Ml 2 Ml Vial) 4 mg IV Q6H PRN PRN Reason: Nausea Stop: 04/11/21 18:03 Polyethylene Glycol (Polyethylene (Miralax) 17 Gm Pack) 17 gm PO DAILY PRN PRN Reason: Constipation Stop: 04/11/21 18:03 PG Care Time/CCT Total # of Minutes Spent Total Time Spent with Patient: Total time spent is greater than 50% in coordination of care (as documented) at patient's floor/unit and/or counseling patient: Coding Level of Care Code 98109 Subseq Hosp Care Lvl 3 Diagnoses Right ventricular dysfunction I51.9 Saddle pulmonary embolus I26.02 Acute cor pulmonale presence: with acute cor pulmonale Chronicity: acute Elevated troponin R77.8 Dyslipidemia E78.5 Recurrent deep vein thrombosis (DVT) I82.409 Sinus pause I45.5 (1) Saddle pulmonary embolus Acute cor pulmonale presence: with acute cor pulmonale Chronicity: acute Qualified Code(s): I26.02 - Saddle embolus of pulmonary artery with acute cor pulmonale
[2021-03-14] MEDS: ACETAMINOPHEN 325 MG TAB PO PRN (22:00)
[2021-03-15] MEDS: HEPARIN SODIUM/DEXTROSE 25,000 UNITS/500 ML BAG IV SCH ×2 (05:31→09:39)
--- NOTE | 2021-03-15 05:48 | Electrocardiogram Report ---
Test Reason : Blood Pressure : / mmHG Vent. Rate : 079 BPM Atrial Rate : 079 BPM P-R Int : 176 ms QRS Dur : 086 ms QT Int : 418 ms P-R-T Axes : 031 -37 -64 degrees QTc Int : 479 ms Normal sinus rhythm Left axis deviation Low voltage QRS Inferior infarct (cited on or before 12-MAR-2021) Poor R wave progression, consider anterior NH vs. lead placement vs. LVH T wave abnormality, consider inferior ischemia T wave abnormality, consider anterior ischemia Abnormal ECG When compared with ECG of 12-MAR-2021 10:10, No significant change was found Confirmed by Angel Lynn ([id number]) on 03/15/2021 5:48:18 AM Referred By: REFERRED SELF Confirmed By:Angel Lynn
--- NOTE | 2021-03-15 06:51 | Electrocardiogram Report ---
Test Reason : Blood Pressure : / mmHG Vent. Rate : 080 BPM Atrial Rate : 080 BPM P-R Int : 190 ms QRS Dur : 088 ms QT Int : 414 ms P-R-T Axes : 049 -38 -54 degrees QTc Int : 477 ms Normal sinus rhythm Left axis deviation Low voltage QRS Inferior infarct (cited on or before 12-MAR-2021) Cannot rule out Anterior infarct (cited on or before 13-MAR-2021) T wave abnormality, consider anterior ischemia T wave abnormality, consider inferior ischemia Abnormal ECG When compared with ECG of 13-MAR-2021 06:03, No significant change was found Confirmed by Angel Lynn ([id number]) on 03/15/2021 6:50:43 AM Referred By: REFERRED SELF Confirmed By:Angel Lynn
[2021-03-15] MEDS: CEROVITE ADV FORMULA TAB PO SCH (07:51)
[2021-03-15 08:01] LABS: Hematocrit (blood only) 36.8 % (37-47); Hemoglobin 12.3 g/dL (12.0-16.0); Mean Corpuscular Hemoglobin 31.8 pg (25-34); Mean Corpuscular Hgb Conc 33.4 g/dL (32-36); Mean Corpuscular Volume 95.1 fL (80-100); Mean Platelet Volume 9.6 fL (7.4-10.4); Platelet Count 349 K/uL (130-400); RDW Coefficient of Variation 13.2 % (11.5-14.5); Red Blood Count 3.87 M/uL (4.2-5.4); White Blood Count 7.06 K/uL (4.8-10.8)
[2021-03-15 08:10] LABS: Partial Thromboplastin Time 52.3 Seconds (21.0-31.0)
[2021-03-15 08:15] LABS: Creatinine Clr Calc Pharmacy 129.7 ml/min; Est GFR (African American) 121.3 ml/min; Est GFR (Non-African American) 104.7 ml/min; Potassium 3.8 mmol/L (3.5-5.1)
[2021-03-15] MEDS ORDERED: APIXABAN 5 MG TABLET PO SCH (09:00)
--- NOTE | 2021-03-15 13:42 | Hospitalist Progress Note ---
Date of Service March 15, 2021 Assessment & Plan (1) Saddle pulmonary embolus: (2) Hypoxia: (3) Left leg DVT: (4) Elevated troponin: Patient is a 70 yr female with H/O DVT x2 in the past, one provoked by hormone replacement therapy who presents to ED secondary to shortness of breath x 4 d ays. Acute bilateral pulmonary embolism Acute left lower extremity deep vein thrombosis Hypoxia secondary to above Type II SD due to above -CTA: Extensive bilateral pulmonary emboli including a saddle embolus at the main pulmonary arteries and mild right-sided heart strain. Probable developing small pulmonary infarct within the left lower lobe. Trace left pleural effusion. A 5 mm indeterminate pulmonary nodule within the left lower lobe. -Venous Doppler:Deep venous thrombus within the left superficial femoral vein. -ECHO: The right ventricle is moderate to severely dilated. Right ventricle systolic function is severely reduced. There is no evidence of pulmonary hypertension. Left ventricle is normal in size. EF 55 to 60%. Mild mitral regurgitation, tricuspid regurgitation. No pericardial effusion -Hypercoagulable work-up as outpatient -Troponin trended down -Continue supplemental oxygen as needed -Patient interested in DOACs- Eliquis -Appreciate critical care, Cardiology input -IV Heparin transitioned to Eliquis as per patient's preference -Needs follow-up with cardiology with repeat echo as outpatient 2 step: Needs 2 L of supplemental oxygen with activity. Sinus Pause Asymptomatic Appreciate cardiology input Sleep study as outpatient (5) Hypokalemia: Replace electrolytes as needed Monitor (6) Pulmonary nodule: Incidental finding on CT CT as above Needs follow up CT in 12 months DVT Px Eliquis CODE STATUS Full code Disposition Home Admission and Anticipated Discharge Date Admission Date: March 12, 2021 Subjective Patient is seen and examined at bedside Doing well today Had 2 step earlier today No bleeding issues Denies chest pain, dyspnea, dizziness, nausea, abdominal pain Eager to get discharged Review of Systems Review of Systems: All systems reviewed & are unremarkable except as noted in HPI & below Physical Exam Physical Exam: Physical Exam: Vitals signs as noted above General Appearance:Moderately built and nourished, no apparent distress Head: normocephalic, Atraumatic Eyes: normal inspection, EOMI Neck: supple, Trachea midline Respiratory/Chest: Normal breath sounds, CTA, No accessory muscle use Cardiovascular: S1, S2, No murmur Abdomen/GI:Soft, Non tender, Bowel sounds present Extremities/Musculoskeletal:normal inspection, 1+ B/L LE edema Neurologic/Psych:AAOX3, grossly no focal neurological deficits Skin: normal color, warm Results & Data Results & Data ([facility]) Vital Signs (Past 12 Hours) Vital Signs Temp Pulse Pulse Pulse Pulse Pulse Pulse 03/15/21 12:14 36.7 C 101 H 03/15/21 10:57 99 H 111 H 95 H 98 H 03/15/21 07:59 36.4 C L 88 03/15/21 07:00 75 03/15/21 03:50 36.4 C L 81 Resp Resp Resp Resp Resp BP Pulse Ox 03/15/21 12:14 18 125/82 97 03/15/21 10:57 20 22 18 18 03/15/21 07:59 20 117/79 97 03/15/21 07:00 03/15/21 03:50 18 102/56 L 90 Pulse Ox Pulse Ox Pulse Ox Pulse Ox 03/15/21 12:14 03/15/21 10:57 91 84 L 95 96 03/15/21 07:59 03/15/21 07:00 03/15/21 03:50 Laboratory Results Short CBC 03/15/21 Range/Units 07:24 WBC 7.06 (4.8-10.8) K/uL Hgb 12.3 (12.0-16.0) g/dL Hct 36.8 L (37-47) % Plt Count 349 (130-400) K/uL BMP 03/15/21 07:24 Sodium 142 Potassium 3.8 Chloride 109 H Carbon Dioxide 27 BUN 12 Creatinine 0.41 L Glucose 85 Calcium 9.0 (1) Saddle pulmonary embolus Acute cor pulmonale presence: with acute cor pulmonale Chronicity: acute Qualified Code(s): I26.02 - Saddle embolus of pulmonary artery with acute cor pulmonale
--- NOTE | 2021-03-15 13:58 | Discharge Summary ---
Date of Service March 15, 2021 Admission HPI Per Admitting Provider This is a 70-year-old female who has prior PMH of DVT x2 in the past, one provoked by hormone replacement therapy who presents to ED secondary to shortness of breath x 4 days. Patient was in her normal state of health until Thursday when she noticed minor exertion caused her to be short of breath. This morning she became extremely short of breath just brushing teeth, and therefore she presented to ED. She denies similar symptoms in the past. She did not have any lightheadedness, dizziness, nausea, chest pain or diaphoresis associated with shortness of breath. She does elicit last evening having significant sub sternal indigestion. This felt similar to her prior indigestion and was relieved with Pepto-Bismol. She denies any recent surgery, prolonged immobilization or travel. Her first DVT was when she was on hormone replacement therapy. Her second DVT was unprovoked. She was treated with warfarin both times. She denies any hypercoagulable work-up or family history of DVT. She denies any recent fever, chills, sweats, palpitations, nausea, vomiting, abdominal pain, dysuria, increased urgency or frequency with urination, melena or hematochezia. Approximately 1 month ago patient was treated with antibiotics secondary to dysuria and hematuria. Her urine culture was negative at the time. She did have repeat UA which showed small about of microscopic blood. In ED patient remained hemodynamically stable although she was requiring 2 L of supplemental oxygen. Her CBC and CMP was generally unremarkable except for potassium 3.3 and glucose 142. Her troponin was elevated at 0.295. Chest CTA revealed extensive bilateral PE including saddle embolus at main pulmonary arteries and mild right heart strain, probable developing small pulmonary infarcts in the left lower lobe. Consultation was made with critical care services for discussion of thrombolysis and patient declined. She was therefore started on appropriate IV heparin therapy. Admission Exam Per Admitting Provider Physical Exam Physical Exam: Constitutional: WD/WN, F, vitals as above, NAD, sitting up in bed, pleasant, conversing easily Head: Normocephalic, Atraumatic Eyes: PERRL, conjunctivae normal, anicteric sclerae ENMT: external ear and nose normal, oropharynx normal Neck: trachea midline, no thyromegaly normal visual inspection Respiratory: 2L of O2 via NC, normal respiratory effort, lungs clear to auscultation, no wheeze, rales, rhonchi. Normal insp/exp effort, no accessory muscle use Cardiovascular: RRR, no murmur, LLE > RLE, + LLE edema Vessels: no JVD or carotid bruit Chest: normal inspection of chest Abdomen: normal bowel sounds, soft, nontender, no hepatosplenomegaly Musculoskeletal: no cyanosis or clubbing, extremities motor strength 5/5 Skin: no rashes, warm and dry normal turgor Neurologic: PERRL, EOMI, accommodation nl, no face palsy, no dysarthria CN's II-XI intact bilaterally and moves all extremities Psychiatric: A+Ox3, euthymic affect Lymphatic: no cervical or axillary lymphadenopathy : deferred Principal Diagnosis Acute bilateral pulmonary embolism Acute left lower extremity deep vein thrombosis Hypoxia Pulmonary Nodule Discharge Data Allergies Allergy/AdvReac Type Severity Reaction Status Date / Time [id number] Reductase AdvReac Severe Feels like Unverified 03/12/21 14:52 Inhibitor cuts inside of mouth Consultations 03/12/21 14:21 ED Decision to Admit Stat 03/12/21 18:04 Consult Cardiology Routine Procedures Performed -CTA: Extensive bilateral pulmonary emboli including a saddle embolus at the main pulmonary arteries and mild right-sided heart strain. Probable developing small pulmonary infarct within the left lower lobe. Trace left pleural effusion. A 5 mm indeterminate pulmonary nodule within the left lower lobe. -Venous Doppler:Deep venous thrombus within the left superficial femoral vein. -ECHO: The right ventricle is moderate to severely dilated. Right ventricle systolic function is severely reduced. There is no evidence of pulmonary hypertension. Left ventricle is normal in size. EF 55 to 60%. Mild mitral regurgitation, tricuspid regurgitation. No pericardial effusion Ordered Studies 03/12/21 11:51 CT angio chest PE protocol Stat 03/12/21 14:53 US venous doppler LE Stat Hospital Course (1) Saddle pulmonary embolus: (2) Hypoxia: (3) Left leg DVT: (4) Elevated troponin: Patient is a 70 yr female with H/O DVT x2 in the past, one provoked by hormone replacement therapy who presents to ED secondary to shortness of breath x 4 days. Acute bilateral pulmonary embolism Acute left lower extremity deep vein thrombosis Hypoxia secondary to above Type II [place] due to above -CTA: Extensive bilateral pulmonary emboli including a saddle embolus at the main pulmonary arteries and mild right-sided heart strain. Probable developing small pulmonary infarct within the left lower lobe. Trace left pleural effusion. A 5 mm indeterminate pulmonary nodule within the left lower lobe. -Venous Doppler:Deep venous thrombus within the left superficial femoral vein. -ECHO: The right ventricle is moderate to severely dilated. Right ventricle systolic function is severely reduced. There is no evidence of pulmonary hypertension. Left ventricle is normal in size. EF 55 to 60%. Mild mitral regurgitation, tricuspid regurgitation. No pericardial effusion -Hypercoagulable work-up as outpatient -Troponin trended down -Continue supplemental oxygen as needed -Patient interested in DOACs- Eliquis -Appreciate critical care, Cardiology input -IV Heparin transitioned to Eliquis as per patient's preference -Needs follow-up with cardiology with repeat echo as outpatient 2 step: Needs 2 L of supplemental oxygen with activity. Sinus Pause Asymptomatic Appreciate cardiology input Sleep study as outpatient (5) Hypokalemia: Replace electrolytes as needed Monitor (6) Pulmonary nodule: Incidental finding on CT CT as above Needs follow up CT in 12 months DVT Px Eliquis CODE STATUS Full code Disposition Home Total Time Total Time Spent Total Time Spent (In Minutes): 42 minutes Total Time Includes: Examination of the Patient, Discharge Planning, Medication Reconciliation, Communication With Other Providers and Other Discharge Plan Discharge Items Patient Disposition: Home - Self-Care Reason For Visit: SADDLE PE; HYPOXIA Discharge Diagnosis: Acute bilateral pulmonary embolism Acute left lower extremity deep vein thrombosis Hypoxia Pulmonary Nodule Activity: Per Instructions section Exercise/Sports: Wait until after follow-up appointment Non-emergency contact: Primary Care Provider and Storage Administrator Call non-emergency contact if: you have any medication questions, your symptoms worsen, your pain is not controlled, your pain is concerning for you and you have a fever Follow-up/Referrals: Angel Lynn MD [Physician] - Canelo Leslie MD [Primary Care Provider] - (Date & Time 03/19/2021 11:20 AM Provider Canelo Leslie MD [facility] ) Diet: Heart Healthy Addtl Attending Provider Instructions: Follow-up with your primary care physician Dr. Leslie on 03/19/2021 at 11:20 AM Follow-up with your retail pos specialist Dr. Lynn in 3-4 weeks as recommended Get hypercoagulable work-up as an outpatient as recommended to determine origin possible cause for blood clots. Apixaban (Eliquis) Course: Start taking 10 mg twice a day for 7 days, and then take 5 mg twice a day. Duration of anticoagulation to be determined by your physician. You were incidentally found to have 5 mm left lower lobe pulmonary nodule on your CAT scan. Follow-up with your primary care physician for further recommendations. USE OXYGEN via 2 Liters via nasal cannula with activity. Get Sleep Study as outpatient as recommended by your Storage Administrator Do not take group of medications belonging to NSAIDs group -can increase your risk for bleeding while on Apixaban (Eliquis) List Of these medications includes but not limited to: Aspirin Diclofenac Ibuprofen, Motrin, Advil Toradol,ketorolac Naproxen, Aleve, Naprosyn You can take Tylenol as needed for pain or fever When buying inig-opu-fuizvyw pain medications please consult with pharmacy if you are not sure regarding ingredients, as a lot of the pain medications have combination of NSAIDs and Tylenol. Seek immediate medical attention if your symptoms reoccur or worsen Please take all medications as instructed on discharge list below. Please call if you have any questions or problems. You can reach a [facility] hospitalist on duty at [facility] 24 hours a day by calling [phone] Pending Studies at Discharge: No Stand-Alone Forms: My [facility], Smoking Cessation Medications and DC Order Prescriptions: New apixaban 5 mg (74 tabs) tablets,dose pack 5 mg PO UD Qty: 74 RF: 1 Continued Multivitamin Gummies 200 mcg Tablet,Chewable 1 tab PO QAM RF: 0 Discharge Orders: Discharge Order (Routine); Ordered 03/15/21 Ordered By: Van Dominique Admission Data Admit Date/Time: 03/12/21 14:59 Attending Provider: Van Dominique Admit Provider: Moon Meng Primary Care Provider: Canelo Leslie Other Providers: Moon Meng ; Papo Wright Other Interventions: Discharge Summary Assessment (RN) Last Done: 03/15/21 15:14
== END 2021-03-15 16:43 | disposition home or self-care (01) | DRG 175 ==
LOC: ED 10:00 → SUATTDRO 14:59 → 2S 14:59